=== PATIENT | female | born 1940 | race Caucasian/White ===

== ENCOUNTER → 2019-08-02 12:13 | Outpatient (CLI) | payer MEDICARE, SELFPAY ==
--- NOTE | ~2019-08-02 | MR_ITS ---
EXAMINATION: MR femur RT wo con DATE: 08/02/2019 13:24 INDICATION: Severe right quadriceps muscle pain. TECHNIQUE: Magnetic resonance imaging (MRI) of the right thigh was performed without intravenous cont rast. Sequences included axial, sagittal and coronal T1-weighted FSE and axial, sagittal and coronal fluid sensitive FSE STIR. The contralateral left thigh is included on the coronal images. Patient was asked to return for additional axial fluid sensitive FSE STIR and T2-weighted FS FSE weighted imagin g of the thigh utilizing a surface flexed coil to reduce the field artifact which was complicated int erpretation on the initial images. COMPARISON: None. FINDINGS: Metallic magnetic field artifact at the right knee consistent with a prior total knee arthroplasty. T here appears be an associated guide tract extending short distance cephalad from the intercondylar re gion of the distal femur. Marrow signal is otherwise normal throughout the visualized portions of the bilateral femurs and pelvis. No fracture or pathologic marrow replacing process. There appears to be very subtle heterogeneous increased fluid signal associated with several of the m uscles in the bilateral thighs. Specificity on the initial imaging is somewhat limited by some hetero geneity to the MR signal likely related to patient body habitus. Nonetheless the signal changes appea r to respect the anatomic boundaries of the musculature to greater degree than would be expected for artifact. This can be best appreciated when comparing the signal in the right vastus lateralis muscul ature with the adjacent musculature of the vastus intermedius and rectus femoris muscles on both the coronal and axial images. There also appears to be subtle increased signal in the right biceps femori s muscle again relative to the adjacent posterolateral portion of the vastus intermedius muscle and a long the sartorius muscle relative to the surrounding muscles. Similar relative increased signal of t he left vastus lateralis relative to the rectus femoris and vastus intermedius muscle on the coronal images however evaluation is limited in the absence of additional orthogonal planes of imaging. On th e repeat images identical pattern of severe subtle increased signal is appreciated which argues again st field artifact. Relatively symmetric mild lateral predominant subcutaneous edema at both thighs. No loculated fluid c ollections or abnormal masses identified. Small right knee joint effusion. No hip joint effusions. Ne urovascular structures in the right thigh appear unremarkable. No pathologically enlarged inguinal ly mphadenopathy. IMPRESSION: 1. Subtle increased fluid signal on STIR and T2 fat sat images associated with some of the musculatur e in both thighs, including the bilateral vastus intermedius lateralis muscles and right biceps femor is sartorius muscles. Identical pattern with both the body coil as well as imaging with a surface coi l performed 2 days later which would argue against field inhomogeneity artifact. Differential would i nclude overuse syndrome delayed onset muscle soreness, trauma either direct injury or muscle strain, denervation change, rhabdomyolysis and infectious or inflammatory myopathy, the latter which has an a dditional wide differential including dermatomyositis, polymyositis and myositis associated with conn ective tissue diseases. Reviewed, dictated and finalized at location A. STAMPER IMPRESSION: 1. Subtle increased fluid signal on STIR and T2 fat sat images associated with some of the musculature in both thighs, including the bilateral vastus intermed ius lateralis muscles and right biceps femoris sartorius muscles. Identical pat tern with both the body coil as well as imaging with a surface coil performed 2 d
== END ==
PROVIDERS: PCP Family Medicine; Visit Provider Orthopaedic Surgery
DX: M79.651 Pain in right thigh (principal)
CPT/HCPCS: 73718

== ENCOUNTER → 2019-12-29 12:56 | Outpatient (CLI) | payer MEDICARE, SELFPAY ==
--- NOTE | ~2019-12-29 | MM_ITS ---
EXAMINATION: MM screening reed LT w leia HISTORY: Screening TECHNIQUE: Craniocaudal and mediolateral oblique 3-D tomosynthesis images were obtained and synthetic 2-D images were generated. CAD analysis was submitted and interpreted. COMPARISON: Comparison to multiple prior studies sequentially, with oldest reviewed study dated 11/2016. BREAST PARENCHYMAL COMPOSITION: There are scattered areas of fibroglandular density. FINDINGS: There is no evidence of suspicious mass, calcification, or architectural distortion to sugg est malignancy in either breast. There has been no suspicious interval change. IMPRESSION: 1. No mammographic evidence of malignancy. 2. Recommend routine screening mammography in one year. BI-RADS Category 1: Negative Reviewed, dictated and finalized at location A.
== END ==
PROVIDERS: PCP Family Medicine; Visit Provider Internal Medicine Medical Oncology
DX: Z12.31 Encounter for screening mammogram for malignant neoplasm of breast (principal)
CPT/HCPCS: 77063; 77067

== ENCOUNTER 2020-01-18 00:40 | Outpatient (CLI) | payer MEDICARE, SELFPAY ==
[2020-01-18 18:42] LABS: SARS-CoV-2 RNA PCR Negative
== END 2020-01-18 00:41 | disposition home or self-care (01) ==
LOC: ANHCOVIDDT 00:41
PROVIDERS: PCP Family Medicine; Visit Provider Internal Medicine Gastroenterology
DX: Z01.812 Encounter for preprocedural laboratory examination (principal); Z20.828 Contact with and (suspected) exposure to other viral communicable diseases
CPT/HCPCS: 87635; C9803; U0003

== ENCOUNTER 2020-01-20 01:30 | Day surgery (SDC) | payer MEDICARE, SELFPAY ==
[2020-01-13 12:07] VITALS: BMI 43.1
[2020-01-20] MEDS: LACTATED RINGERS 1,000 ML 150 ML IV CONT (08:30)
--- NOTE | 2020-01-20 08:32 | WPDANESEPPF ---
Anes - Initial Pre Proc Eval Procedure: Operation Date: 01/20/20 09:00 Proposed Procedures p Colonoscopy - Mook Wilcox MD Date/Time: 01/20/20 08:32 Surgeon: Mook Wilcox MD Pre Op Diagnosis: IBS with diarrhea Patient Data Age: 79 Gender: F Height: 5 ft 2 in Weight: 107 kg Allergies Allergy/AdvReac Type Severity Reaction Status Date / Time guaifenesin Allergy Unknown FACIAL Verified 01/20/20 08:32 SWELLING tramadol AdvReac Severe URINARY Verified 01/20/20 08:32 FREQ codeine AdvReac Unknown FELT Verified 01/20/20 08:32 WEIRD - GI UPSET NSAIDS AdvReac Severe DECREASED Uncoded 01/20/20 08:32 KIDNEY FUNCTION STEROIDS AdvReac Severe BIPOLAR Uncoded 01/20/20 08:32 OXYCODONE HCL AdvReac Unknown FELT Uncoded 01/20/20 08:32 WEIRD - GI UPSET TRAMADOL HCL AdvReac Unknown FELT Uncoded 01/20/20 08:32 WEIRD - GI UPSET Home Medications Medication Instructions Recorded Confirmed Type aripiprazole 15 mg tablet 15 mg PO DAILY 05/02/19 01/13/20 History bupropion HCl 300 mg 24 hr tablet, 300 mg PO QAM 05/02/19 01/13/20 History extended release tamoxifen 20 mg tablet 50 mg PO DAILY tablet 05/02/19 01/13/20 History meclizine 25 mg tablet 25 mg PO TID PRN #30 tablet 06/10/19 01/13/20 Rx lisinopril 5 mg tablet 5 mg PO BID #180 tablet 07/04/19 01/13/20 Rx levothyroxine 75 mcg capsule 75 mcg PO DAILY #90 cap 09/27/19 01/13/20 Rx temazepam 30 mg capsule 30 mg PO .HS #30 cap 10/19/19 01/13/20 Rx pregabalin 150 mg capsule 150 mg PO BID #180 cap 11/07/19 01/13/20 Rx fluticasone propionate 50 1 spray NASAL DAILY #9.9 ml 12/08/19 01/13/20 Rx mcg/actuation nasal spray,suspension vortioxetine 10 mg tablet 10 mg PO DAILY #90 tablet 12/29/19 01/13/20 Rx amlodipine 10 mg tablet 10 mg PO DAILY #90 tablet 01/06/20 01/13/20 Rx peg 3350-electrolytes 236 240 ml PO Q10M #4000 ml 01/11/20 Rx gram-22.74 gram-6.74 gram-5.86 gram solution Patient hx anesthesia problems: none Family hx anesthesia problems: none [facility] Past Medical History Medical History (Updated 12/15/19 @ 11:21 by Mook Wilcox MD) Acute depression Adenomatous colon polyp Arthritis Breast cancer Fibromyalgia Fibromyalgia History of endometrial cancer History of stroke History of vaginal delivery x 3 Hypertension Irritable bowel syndrome with diarrhea Irritable bowel syndrome without diarrhea Myositis Obese Surgical History Surgical History (Updated 10/26/19 @ 10:19 by Nicole Norris CMA) History of back surgery X3 History of cholecystectomy History of fusion of cervical spine History of hysterectomy History of knee surgery Left History of shoulder surgery Left History of tubal ligation Social History Social History (Updated 12/15/19 @ 11:11 by Hiral Giron) Years smoked: 1 Smoking status: Former smoker Tobacco type: cigarettes Second hand tobacco smoke exposure: No Alcohol intake: never Anes - Eval Final PreProcedure Day of Procedure 01/20/20 08:32 Patient weight: morbidly obese Heart: regular rate and rhythm Lungs: clear to auscultation Airway: Mallampati scale class III Neurological: alert and oriented Last oral intake: >/= 8 hours ASA classification: III Emergent: no Anesthesia type and monitoring: general and standard monitoring Informed Consent: The patient's anesthetic plan and its attendant risks and benefits were discussed with the patient/family/POA. Questions were solicited and answers provided to the satisfaction of the patient/family/POA.
[2020-01-20 08:34] VITALS: BP 144/66; PULSE 91; RESP 20; TEMP 36.6; O2SAT 97
--- NOTE | 2020-01-20 09:27 | PM.HPGS ---
History of Present Illness History of Present Illness Consent: Risks, benefits, and alternatives have been discussed and questions answered. Patient agrees to proceed with procedure. Chief complaint: IBS with diarrhea Narrative: Oliva Andrews is a 79 year old female with last colonoscopy about 5 years ago with polyps, also IBS-D but well controlled. Review of Systems Constitutional: Constitutional: Denies headache(s) and Denies weakness Eyes: Eyes: Denies blurry vision ENT: Reports Normal hearing present, Denies headache(s) and Denies neck pain Cardiovascular: Cardiovascular: Denies chest pain and Denies dyspnea Respiratory: Respiratory: Denies dyspnea Gastrointestinal: Gastrointestinal: Reports no additional gastrointestinal complaints Genitourinary: Genitourinary: Denies dysuria Musculoskeletal: Musculoskeletal: Denies neck pain Integumentary/Breasts: Skin/Breast: Denies dry skin Neurologic: Reports Normal hearing present, Denies headache(s) and Denies weakness Psychiatric: Psychiatric: Denies anxiety Endocrine: Endocrine: Denies change in body appearance Hematologic/Lymphatic: Hematologic/Lymphatic: Denies easy bleeding Allergic/Immunologic: Allergic/Immunologic: Denies urticaria PMFSH Past Medical History Medical History (Updated 12/15/19 @ 11:21 by Mook Wilcox MD) Acute depression Adenomatous colon polyp Arthritis Breast cancer Fibromyalgia Fibromyalgia History of endometrial cancer History of stroke History of vaginal delivery x 3 Hypertension Irritable bowel syndrome with diarrhea Irritable bowel syndrome without diarrhea Myositis Obese Surgical History Surgical History (Updated 10/26/19 @ 10:19 by Nicole Norris CMA) History of back surgery X3 History of cholecystectomy History of fusion of cervical spine History of hysterectomy History of knee surgery Left History of shoulder surgery Left History of tubal ligation Social History Social History (Updated 12/15/19 @ 11:11 by Hiral Giron) Years smoked: 1 Smoking status: Former smoker Tobacco type: cigarettes Second hand tobacco smoke exposure: No Alcohol intake: never Meds Home Medications and Allergies Home Medications Medication Instructions Recorded Confirmed Type aripiprazole 15 mg tablet 15 mg PO DAILY 05/02/19 01/20/20 History bupropion HCl 300 mg 24 hr tablet, 300 mg PO QAM 05/02/19 01/20/20 History extended release tamoxifen 20 mg tablet 50 mg PO DAILY tablet 05/02/19 01/13/20 History meclizine 25 mg tablet 25 mg PO TID PRN #30 tablet 06/10/19 01/13/20 Rx lisinopril 5 mg tablet 5 mg PO BID #180 tablet 07/04/19 01/20/20 Rx levothyroxine 75 mcg capsule 75 mcg PO DAILY #90 cap 09/27/19 01/13/20 Rx temazepam 30 mg capsule 30 mg PO .HS #30 cap 10/19/19 01/20/20 Rx pregabalin 150 mg capsule 150 mg PO BID #180 cap 11/07/19 01/20/20 Rx fluticasone propionate 50 1 spray NASAL DAILY #9.9 ml 12/08/19 01/13/20 Rx mcg/actuation nasal spray,suspension vortioxetine 10 mg tablet 10 mg PO DAILY #90 tablet 12/29/19 01/13/20 Rx amlodipine 10 mg tablet 10 mg PO DAILY #90 tablet 01/06/20 01/20/20 Rx Allergies Allergy/AdvReac Type Severity Reaction Status Date / Time guaifenesin Allergy Unknown FACIAL Verified 01/20/20 08:32 SWELLING tramadol AdvReac Severe URINARY Verified 01/20/20 08:32 FREQ codeine AdvReac Unknown FELT Verified 01/20/20 08:32 WEIRD - GI UPSET NSAIDS AdvReac Severe DECREASED Uncoded 01/20/20 08:32 KIDNEY FUNCTION STEROIDS AdvReac Severe BIPOLAR Uncoded 01/20/20 08:32 OXYCODONE HCL AdvReac Unknown FELT Uncoded 01/20/20 08:32 WEIRD - GI UPSET TRAMADOL HCL AdvReac Unknown FELT Uncoded 01/20/20 08:32 WEIRD - GI UPSET Vital Signs Vital Signs - 24 hr 01/20/20 08:34 Temperature 97.8 F Pulse Rate 91 Respiratory Rate 20 Blood Pressure 144/66 H Pulse Oximetry 97 Exam Const: General:
[2020-01-20 09:50] VITALS: BP 104/49; PULSE 72; RESP 23; O2SAT 95
[2020-01-20 10:00] VITALS: BP 116/56; PULSE 73; RESP 17; O2SAT 100
[2020-01-20 10:10] VITALS: BP 118/60; PULSE 72; RESP 17; O2SAT 97
== END 2020-01-20 10:33 | disposition home or self-care (01) ==
PROVIDERS: PCP Family Medicine; Visit Provider Internal Medicine Gastroenterology
PROC: 0DJD8ZZ Inspection of Lower Intestinal Tract, Via Natural or Artificial Opening Endoscopic (ICD-10-PCS; CPT 45378; principal; 2020-01-20 09:00)
DX: Z12.11 Encounter for screening for malignant neoplasm of colon (principal); Z86.010 Personal history of colon polyps; K58.0 Irritable bowel syndrome with diarrhea; K57.30 Diverticulosis of large intestine without perforation or abscess without bleeding; K64.8 Other hemorrhoids; I10 Essential (primary) hypertension; E66.01 Morbid (severe) obesity due to excess calories; Z68.41 Body mass index [BMI] 40.0-44.9, adult; G47.33 Obstructive sleep apnea (adult) (pediatric); E03.9 Hypothyroidism, unspecified; F32.9 Major depressive disorder, single episode, unspecified; M79.7 Fibromyalgia; C50.919 Malignant neoplasm of unspecified site of unspecified female breast; Z79.810 Long term (current) use of selective estrogen receptor modulators (SERMs); Z85.41 Personal history of malignant neoplasm of cervix uteri; Z90.710 Acquired absence of both cervix and uterus; Z86.73 Personal history of transient ischemic attack (TIA), and cerebral infarction without residual deficits; Z87.891 Personal history of nicotine dependence; Z79.51 Long term (current) use of inhaled steroids; Z79.899 Other long term (current) drug therapy
CPT/HCPCS: 45380; 88305; J2704; J7120

== ENCOUNTER → 2020-10-01 13:11 | Outpatient (CLI) | payer MEDICARE, SELFPAY ==
--- NOTE | ~2020-10-01 | XR_ITS ---
EXAMINATION: XR abdomen/kub 1V DATE: 10/01/2020 13:29 INDICATION: Abdominal pain TECHNIQUE: A supine view of the abdomen on 2 radiographs was obtained. COMPARISON: 08/11/2018 FINDINGS: Moderate amount of stool scattered throughout the colon. No dilated gas-filled loops of bowel to sugg est obstruction. Cholecystectomy clip in the right upper quadrant. Multiple phleboliths in the pelvis . 2-3 mm calcification projecting over the lower pole of the left kidney suspicious for renal stone. Severe lumbosacral spondylosis. IMPRESSION: 1. Moderate amount of colonic stool. Correlate clinically for constipation. 2. 2-3 mm likely renal stone at the lower pole of the left kidney. Reviewed, dictated and finalized at location A.
--- NOTE | ~2020-10-01 | US_ITS ---
US renal BI 10/01/2020 13:47 Procedure: Realtime transabdominal ultrasound of the kidneys and bladder. Indication: Renal cyst Comparison: Ultrasound dated 02/02/2018 Findings: Renal echotexture is normal bilaterally without hydronephrosis, contour deforming mass or r enal calculus. The right kidney measures 10.3 cm and left kidney measures 12.1 cm. No significant judy nge to 9 mm hypoechoic right renal mass, likely benign cysts. Bladder within normal limits. Impression: 1: No significant change to 9 mm hypoechoic right renal mass, likely benign cyst. Reviewed, dictated and finalized at location B. Impression: 1: No significant change to 9 mm hypoechoic right renal mass, likely benign cys t.
== END ==
PROVIDERS: PCP Family Medicine; Visit Provider Physician Assistant Medical
DX: G89.29 Other chronic pain (principal); R10.9 Unspecified abdominal pain; N28.1 Cyst of kidney, acquired
CPT/HCPCS: 74018; 76775

== ENCOUNTER → 2020-12-11 10:05 | Outpatient (REF) | payer MEDICARE, SELFPAY | LOC: ANHLAB 10:05 | PROVIDERS: PCP Family Medicine; Visit Provider Nurse Practitioner | DX: L82.1 Other seborrheic keratosis (principal) | CPT/HCPCS: 88305 ==

== ENCOUNTER → 2020-12-31 10:37 | Outpatient (CLI) | payer MEDICARE, SELFPAY ==
--- NOTE | ~2020-12-31 | MM_ITS ---
EXAMINATION: MM screening reed LT w leia HISTORY: Screening mammogram TECHNIQUE: Craniocaudal and mediolateral oblique 3-D tomosynthesis images were obtained and synthetic 2-D images were generated. CAD analysis was submitted and interpreted. COMPARISON: 12/26/2019, 12/24/2018, 12/14/2017 left digital screening mammogram examinations BREAST PARENCHYMAL COMPOSITION: There are scattered areas of fibroglandular density. FINDINGS: There is no evidence of suspicious mass, calcification, or architectural distortion to sugg est malignancy in either breast. There has been no suspicious interval change. IMPRESSION: 1. No mammographic evidence of malignancy. 2. Recommend routine screening mammography in one year. BI-RADS Category 1: Negative Reviewed, dictated and finalized at location A.
== END ==
PROVIDERS: PCP Family Medicine; Visit Provider Internal Medicine Medical Oncology
DX: Z12.31 Encounter for screening mammogram for malignant neoplasm of breast (principal)
CPT/HCPCS: 77063; 77067

== ENCOUNTER 2021-04-15 11:45 | Outpatient (CLI) | payer MEDICARE, SELFPAY ==
--- NOTE | ~2021-04-15 | NM_ITS ---
EXAMINATION: NM bone 3 phase DATE: 04/15/2021 15:08 INDICATION: Left shoulder pain. TECHNIQUE: 24.5 mCi Tc-99m HDP was administered intravenously. Scintigrams of the chest were obtained in angiographic, blood pool, and delayed phases. COMPARISON: Left shoulder CT 04/15/2021, bone scan 05/22/2008, chest CT 07/02/2017 FINDINGS: There is a total left shoulder arthroplasty. There is increased activity in left glenoid. T here is increased activity at the acromioclavicular joints and right glenohumeral joint correlating w ith osteoarthritis by CT. There is increased activity at the sternoclavicular joints on delayed phase images, right worse than left, correlating with osteoarthritis by CT. IMPRESSION: 1. Total left shoulder arthroplasty with increased activity in left glenoid without abnormal CT brit elate. Note that this finding has poor specificity, and may be normal. Reviewed, dictated and finalized at location A. PROGRAMMER IMPRESSION: 1. Total left shoulder arthroplasty with increased activity in left glenoid wi thout abnormal CT correlate. Note that this finding has poor specificity, and m ay be normal.
--- NOTE | ~2021-04-15 | CT_ITS ---
EXAMINATION: CT shoulder LT wo con DATE: 04/15/2021 12:31 INDICATION: Left shoulder pain. TECHNIQUE: Computed tomography (CT) of the left shoulder was performed without intravenous contrast. Automated exposure control and iterative reconstruction technique were employed. The dose-length prod uct was 453.65 mGy-cm. COMPARISON: Chest CT 10/29/2015 FINDINGS: There is a reverse [id number]-[id number] total left shoulder arthroplasty in near-anatomic alignm ent. No periprosthetic lucency to suggest loosening or infection. No fracture. There is an exostosis of glenoid neck posteroinferiorly. There is heterotopic ossification posterior to the glenohumeral amy int. There is heterotopic opacification anteromedial to the humeral component. There is moderate oste oarthritis of acromioclavicular joint. Main pulmonary artery is enlarged, consistent with pulmonary a rterial hypertension. There are coronary artery calcifications. IMPRESSION: 1. Reverse yzoi-trt-[id number] total left shoulder arthroplasty in near-anatomic alignment. 2. Moderate acromioclavicular joint osteoarthritis. Reviewed, dictated and finalized at location A. F PSYCHOLOGIST IMPRESSION: 1. Reverse iemn-jve-xaszwg total left shoulder arthroplasty in near-anatomic al ignment. 2. Moderate acromioclavicular joint osteoarthritis.
== END 2021-04-15 11:46 | disposition home or self-care (01) ==
LOC: ANHIMG 11:46
PROVIDERS: PCP Family Medicine; Visit Provider Orthopaedic Surgery Hand Surgery
DX: M19.012 Primary osteoarthritis, left shoulder (principal)
CPT/HCPCS: 73200; 78315; A9561

== ENCOUNTER 2021-08-06 13:51 | Outpatient (CLI) | payer MEDICARE, SELFPAY | END 2021-08-06 13:52 | disposition home or self-care (01) | LOC: ANHAUDIO 13:52 | PROVIDERS: PCP Family Medicine; Visit Provider Otolaryngology | DX: H83.3X1 Noise effects on right inner ear (principal) | CPT/HCPCS: 92557; 92567 ==

== ENCOUNTER 2021-11-07 14:00 | Outpatient (RCR) | payer MEDICARE, SELFPAY | END 2021-11-07 23:59 | disposition home or self-care (01) | LOC: ANHAUDIO 14:00 | PROVIDERS: PCP Family Medicine; Visit Provider Family Medicine | DX: Z46.1 Encounter for fitting and adjustment of hearing aid (principal) | CPT/HCPCS: 99199; V5261 ==

== ENCOUNTER 2022-02-17 13:30 | Outpatient (RCR) | payer MEDICARE, SELFPAY | END 2022-02-17 23:59 | disposition home or self-care (01) | LOC: ANHAUDIO 13:30 | PROVIDERS: PCP Family Medicine; Referring Provider Family Medicine; Visit Provider Otolaryngology | DX: Z46.1 Encounter for fitting and adjustment of hearing aid (principal) | CPT/HCPCS: 99199 ==

== ENCOUNTER 2022-03-06 11:34 | Outpatient (CLI) | payer MEDICARE, SELFPAY ==
--- NOTE | ~2022-03-06 | CT_ITS ---
EXAMINATION: CT abdomen pelvis w con INDICATION: Right lower quadrant pain, history of breast cancer TECHNIQUE: Computed tomographic images of the abdomen and pelvis were obtained after the administrati on of 100 cc of Omnipaque 350 intravenous contrast. The dose-length product (DLP) was 1500.45 mGy-cm. Automated exposure control and iterative reconstruction technique were employed. COMPARISON: 07/19/2018 FINDINGS: Minimal dependent atelectasis is present in the lung bases. The heart size is normal. The g allbladder is surgically absent. There is mild enlargement of the common bile duct and central intrah epatic ducts which is likely due to post cholecystectomy state. The liver, spleen, pancreas, and adre nal glands are normal. There is a 3 mm nonobstructing stone of the left kidney. There is a 13 mm cyst of the left kidney. The right kidney is unremarkable. There is calcified atherosclerosis of the aort a and many of the other arteries. Colonic diverticulosis is present without evidence of diverticuliti s. No pathologically enlarged abdominal or pelvic lymph nodes are identified. There is no free intrap eritoneal gas or evidence of bowel obstruction. The appendix is normal. There is a right periumbilica l ventral hernia containing fat. There is severe lumbar spondylosis. IMPRESSION: 1. Right periumbilical ventral hernia containing fat. 2. Nonobstructing left nephrolithiasis. Reviewed, dictated and finalized at location A.
[2022-03-06 12:09] LABS: Basophils Percent Auto 0.6 % (0.2-1.2); Eosinophils Percent Auto 0.4 % (0-4.4); Hematocrit 48.9 % (37.0-47.0); Immature Granulocyte Absolute 0.01 K/mm3 (0.00-0.031); Immature Granulocyte Percent A 0.2 % (0-0.5); Lymphocytes Absolute Auto 0.59 K/mm3 (0.9-3.2); Mean Corpuscular HGB Conc 32.7 g/dl (32-36); Mean Corpuscular Hemoglobin 31.7 pg (26-34); Mean Platelet Volume 9.6 fl (7.4-10.4); Monocytes Absolute Auto 0.4 K/mm3 (0.1-0.6); Neutrophils Absolute Auto 4.3 K/mm3 (1.3-6.7); Neutrophils Percent Auto 79.8 % (45.5-73.1); Platelet Count Result 233 k/mm3 (150-375); Red Blood Count 5.04 M/mm3 (4.2-5.4); Red Cell Distribution Width 13.2 % (11.5-14.5); White Blood Count 5.4 K/mm3 (4.5-10.0)
[2022-03-06 12:25] LABS: Alanine Aminotransferase 36 U/L (6-35); Albumin Level 4.2 g/dL (3.5-5.1); Alkaline Phosphatase 77 U/L (38-126); Amylase 108 U/L (30-110); Anion Gap 9 mmol/L (8-16); Aspartate Amino Transferase 47 U/L (14-36); Bilirubin,Total 0.6 mg/dL (0.2-1.3); Blood Urea Nitrogen 15 mg/dL (7-17); Calcium 9.6 mg/dL (8.4-10.2); Carbon Dioxide 23 mmol/L (22-30); Chloride 106 mmol/L (98-107); Estimated Glomerular Filt Rate 60; Glucose 93 mg/dL (65-110); Lipase 90 U/L (23-300); Potassium 4.4 mmol/L (3.4-5.0); Sodium 138 mmol/L (137-145)
[2022-03-06 12:35] LABS: Estimated Glomerular Filt Rate 60
== END 2022-03-06 11:35 | disposition home or self-care (01) ==
LOC: ANHIMG 11:35
PROVIDERS: PCP Family Medicine; Visit Provider Nurse Practitioner Family
DX: R10.31 Right lower quadrant pain (principal); Z87.19 Personal history of other diseases of the digestive system; N20.0 Calculus of kidney; K43.9 Ventral hernia without obstruction or gangrene
CPT/HCPCS: 36415; 74177; 80053; 82150; 83690; 85025; Q9967

== ENCOUNTER → 2022-03-25 13:43 | Outpatient (CLI) | payer MEDICARE, SELFPAY ==
--- NOTE | ~2022-03-25 | MM_ITS ---
EXAMINATION: MM screening reed LT w leia HISTORY: Screening TECHNIQUE: Craniocaudal and mediolateral oblique 3-D tomosynthesis images were obtained and synthetic 2-D images were generated. CAD analysis was submitted and interpreted. COMPARISON: 12/14/2017 BREAST PARENCHYMAL COMPOSITION: Breast composed of scattered areas of fibroglandular density FINDINGS: There is no evidence of suspicious mass, calcification, or architectural distortion to sugg est malignancy in the left breast. There has been no suspicious interval change. IMPRESSION: 1. No mammographic evidence of malignancy. 2. Recommend routine screening mammography in one year. BI-RADS Category 1: Negative Reviewed, dictated and finalized at location A.
== END ==
PROVIDERS: PCP Family Medicine; Visit Provider Internal Medicine Medical Oncology
DX: Z12.31 Encounter for screening mammogram for malignant neoplasm of breast (principal)
CPT/HCPCS: 77063; 77067

== ENCOUNTER → 2022-07-17 13:44 | Outpatient (CLI) | payer MEDICARE, SELFPAY ==
--- NOTE | ~2022-07-17 | US_ITS ---
US axilla RT DATE: 07/17/2022 14:02 INDICATION: Right axillary and shoulder pain for one month. Diminished range of motion, pain and stif fness of right upper extremity History of right mastectomy. TECHNIQUE: Real-time imaging of the right axillary soft tissues COMPARISON: None FINDINGS: No suspicious mass or shadowing, cyst or other significant sonographic abnormality of the r ight axilla is noted. IMPRESSION: Negative examination Reviewed, dictated and finalized at Location A. Reviewed, dictated and finalized at location A. PREVENTION CONSULTANT IMPRESSION: Negative examination
== END ==
PROVIDERS: PCP Family Medicine; Visit Provider Nurse Practitioner Family
DX: M25.511 Pain in right shoulder (principal); Z85.3 Personal history of malignant neoplasm of breast
CPT/HCPCS: 76882

== ENCOUNTER → 2023-03-27 10:24 | Outpatient (CLI) | payer MEDICARE, SELFPAY ==
--- NOTE | ~2023-03-27 | MM_ITS ---
EXAMINATION: MM screening rede LT w leia HISTORY: Screening TECHNIQUE: Craniocaudal and mediolateral oblique 3-D tomosynthesis images were obtained and synthetic 2-D images were generated. CAD analysis was submitted and interpreted. COMPARISON: Comparison to multiple prior studies sequentially, with oldest reviewed study dated 11/2016. BREAST PARENCHYMAL COMPOSITION: Breast composed of scattered areas of fibroglandular density FINDINGS: There is no evidence of suspicious mass, calcification, or architectural distortion to sugg est malignancy in either breast. There has been no suspicious interval change. IMPRESSION: 1. No mammographic evidence of malignancy. 2. Recommend routine screening mammography in one year. BI-RADS Category 1: Negative Reviewed, dictated and finalized at location A.
== END ==
PROVIDERS: PCP Family Medicine; Visit Provider Internal Medicine Medical Oncology
DX: Z12.31 Encounter for screening mammogram for malignant neoplasm of breast (principal)
CPT/HCPCS: 77063; 77067

== ENCOUNTER → 2023-06-11 13:11 | Outpatient (CLI) | payer MEDICARE, SELFPAY ==
--- NOTE | ~2023-06-11 | CT_ITS ---
Non-contrast CT scan of the Abdomen and Pelvis Clinical indication: Abdominal pain Technique: 2.5 mm axial scans were obtained through the abdomen and pelvis without intravenous or or al contrast. Dose reduction technique was used on this scan by utilizing automated exposure control a nd iterative reconstruction technique. The dose-length product (DLP) was 952.94 mGy-cm. COMPARISON: 03/06/2022 Findings: Images through the lung bases reveal no abnormalities. 5 mm nonobstructing left renal stone present. No other renal or ureter stones seen. No hydronephrosis . Cholecystectomy clips are present. The liver, spleen, pancreas, and adrenals appear normal. There are atherosclerotic calcifications of the aorta. There is no evidence of bowel obstruction. Small fat-containing ventral hernia noted. Images through the pelvis were performed. There is no evidence of ascites or lymphadenopathy. Bladder unremarkable. No adnexal mass seen. Impression: 5 mm nonobstructing left renal stone. Small fat-containing ventral hernia. Reviewed, dictated and finalized at [facility]. CTOR DANCE Impression: 5 mm nonobstructing left renal stone. Small fat-containing ventral hernia.
== END ==
PROVIDERS: PCP Family Medicine; Visit Provider Family Medicine
DX: R10.9 Unspecified abdominal pain (principal); N20.0 Calculus of kidney; K43.9 Ventral hernia without obstruction or gangrene
CPT/HCPCS: 74176

== ENCOUNTER 2023-07-06 14:05 | Outpatient (CLI) | payer MEDICARE, SELFPAY ==
--- NOTE | ~2023-07-06 | XR_ITS ---
EXAM: XR abdomen/kub 1V DATE: 07/06/2023 14:29 HISTORY: kIDNEY STONES . COMPARISON: 10/01/2020; CT abdomen pelvis 06/11/2023. FINDINGS: Senescent changes in the lungs. Cholecystectomy clip. Normal bowel gas pattern. No organom egaly. 5 mm left lower pole calcification. Multiple pelvic phleboliths. Degenerative changes in the s pine, bilateral hips, and pubic symphysis. IMPRESSION: Left nephrolithiasis. Reviewed, dictated and finalized at location K. ES' HAT TRIMMER IMPRESSION: Left nephrolithiasis.
== END 2023-07-06 14:06 ==
PROVIDERS: PCP Nurse Practitioner Family; Visit Provider Nurse Practitioner Family
DX: N20.0 Calculus of kidney (principal)
CPT/HCPCS: 74018

== ENCOUNTER 2023-09-07 14:31 | Outpatient (CLI) | payer MEDICARE, SELFPAY ==
--- NOTE | 2023-09-07 14:44 | ECG_ITS ---
Measurements Intervals [place] Rate: 68 P: 78 GA: 150 QRS: 20 QRSD: 90 T: 42 QT: 368 QTc: 392 Interpretive Statements SINUS RHYTHM LOW QRS VOLTAGE IN PRECORDIAL LEADS [QRS DEFLECTION < 1.0 mV IN CHEST LEADS] NO PREVIOUS ECG AVAILABLE FOR COMPARISON Electronically Signed On 09-08-2023 8:44:41 CDT by Jonathan Montano M.D.
[2023-09-07 15:52] LABS: Anion Gap 6 mmol/L (4-12); Blood Urea Nitrogen 21 mg/dL (7-17); Calcium 10.1 mg/dL (8.4-10.2); Carbon Dioxide 28 mmol/L (22-30); Chloride 106 mmol/L (98-107); Estimated Glomerular Filt Rate 60; Glucose 110 mg/dL (65-110); Potassium 4.1 mmol/L (3.4-5.0); Sodium 140 mmol/L (137-145)
== END 2023-09-07 14:32 | disposition home or self-care (01) ==
LOC: ANHSURGERY 14:40
PROVIDERS: Anesthesiology; PCP Family Medicine; Visit Provider Urology
DX: N20.0 Calculus of kidney (principal); I12.9 Hypertensive chronic kidney disease with stage 1 through stage 4 chronic kidney disease, or unspecified chronic kidney disease; N18.30 Chronic kidney disease, stage 3 unspecified; Z01.818 Encounter for other preprocedural examination
CPT/HCPCS: 36415; 80048; 85610; 85730; 87086; 87088; 93005

== ENCOUNTER 2023-09-11 02:02 | Day surgery (SDC) | payer MEDICARE, SELFPAY ==
[2023-09-02 13:16] VITALS: BMI 42.9
--- NOTE | 2023-09-02 13:53 | PC.NURSE ---
Report to the Outpatient Waiting Room, entrance under the green pavilion located off [facility], at time ___8:30AM____ on date __09/11/23 . Planned Procedure Time: __10:30AM . Time changes happen often and if your time is changed the preop area will call you the afternoon before. - You and your visitor will be asked to self-screen and do not enter if you have any COVID symptoms. - A mask is optional within the hospital at this time. Patients may have clear liquids (water, carbonated beverages, clear teas, apple juice) until 3 hours prior to surgery with a maximum of 20 ounces. - No food from midnight until time of surgery. Take the following medications with a SIP of water the morning of surgery: __ABILIFY, BUPROPION, LEVOTHYROXINE, PREGABALIN, TRINTELLIX____ DO NOT STOP ANY OF YOUR OTHER PRESCRIPTION MEDICATIONS PRIOR TO SURGERY ?EXCEPT THE FOLLOWING Medications to discontinue per physician ___HOLD ASPIRIN & ALL VITAMINS/SUPPLEMENTS 7 DAYS PRE-OP PER DR BOBO Date to take last dose 09/03/23 Please no make-up, nail omani, hairspray, perfume, deodorant, or body powder the day of surgery. No jewelry (including any body piercings) or valuables the day of surgery, leave them at home. Please take a shower or bath the night before, or the morning of, surgery with an antibacterial soap. Wear comfortable, loose fitting clothing. - Jewelry must be removed prior to entering the operating room. Rings and piercings that are not removed may be cut off. - The hospital will not accept responsibility for valuables. - Please leave all valuables, including medications, at home the day of surgery. If you are going home after surgery, a licensed shuttle bus driver must drive you home. - NO public transportation without another adult if you receive anesthesia. - We recommend that an adult stay with you for 24 hours following discharge. - We also recommend that you do not drive, make important decision, drink alcoholic beverages, or take any drugs that were not prescribed by your health care provider for at least 24 hours after your discharge time. Follow any additional instructions given to you from your surgeon. If you or anyone in your household have experienced Covid symptoms in the past week, please notify your surgeon or the nurse liaison at the phone number below for possible testing. Telephone instructions given to ____PATIENT and asked if any additional questions and then verbalized understanding. Patient advised to call surgeon office or pre surgery nurse liaison [phone] if any additional questions.
--- NOTE | 2023-09-03 07:35 | PM.HPGS ---
History of Present Illness History of Present Illness Consent: Risks, benefits, and alternatives have been discussed and questions answered. Patient agrees to proceed with procedure. Chief complaint: Renal Stones Narrative: Oliva Andrews is a 82 year old female S been evaluated over the past several months by our nurse practitioners for intermittent, somewhat atypical left flank pain. Upper tract imaging has demonstrated a calcified 5 mm renal calculus. After consideration was he has elected for left ESWL. She is aware the risks including, not limited to, adverse cardiopulmonary events, need for additional procedures, hematuria and perinephric hematoma. Review of Systems Review of Systems: All systems reviewed & are unremarkable except as noted in HPI and below PMFSH Past Medical History Medical History Acute depression Adenomatous colon polyp Arthritis BMI 39.0-39.9,adult BMI 40.0-44.9, adult Breast cancer Chronic idiopathic constipation Collagenous colitis Fibromyalgia Fibromyalgia Foot pain, bilateral History of endometrial cancer History of stroke History of vaginal delivery x 3 Hypertension Irritable bowel syndrome with diarrhea Irritable bowel syndrome without diarrhea Left shoulder pain Myositis Nasal drainage Obese Stress due to illness of family member Surgical History Surgical History History of back surgery X3 History of cholecystectomy History of fusion of cervical spine History of hysterectomy History of knee surgery Left History of shoulder surgery Left History of tubal ligation Family History Family History Father Hypertension Cerebrovascular accident, Onset Age: 86 Patient's father is Family history of heart disease in male family member before age 55 Family history of cardiovascular disease Sibling Family history of malignant neoplasm of cervix Patient's sister is Grandparent Cerebrovascular accident Mother Family history of heart disease in male family member before age 55 Family history of cardiovascular disease Sibling No problems noted. Other Family history of kidney stones Social History Social History Years smoked: 1 Smoking status: Never smoker Tobacco type: cigarettes Second hand tobacco smoke exposure: Yes Additional smoking assessment comments: Pt only smoke 1 cigarette a day when she was in college. 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 [employer] Gender identity (if verbalized by the patient): Female Spiritual care concerns: No Meds Home Medications and Allergies Home Medications Medication Instructions Recorded Confirmed Type aripiprazole 15 mg tablet (Abilify) 15 mg PO QAM 05/02/19 09/02/23 History bupropion HCl 300 mg 24 hr tablet, 300 mg PO QAM 05/02/19 09/02/23 History extended release temazepam 30 mg capsule 30 mg PO .HS #30 caps 10/19/19 09/02/23 Rx lisinopril 5 mg tablet 5 mg PO BID #180 tabs 02/04/23 09/02/23 Rx ipratropium bromide 21 mcg (0.03 2 spray intranasal BID #30 mL 05/17/23 09/02/23 Rx %) nasal spray aspirin 81 mg tablet,delayed 81 mg PO DAILY 08/06/23 09/02/23 History release (Adult Aspirin Regimen) amlodi
[2023-09-11] VITALS (9 sets, daily range): BP systolic 103–128; BP diastolic 50–81; PULSE 64–81; RESP 11–18; TEMP 36.2–36.8; O2SAT 95–100
--- NOTE | ~2023-09-11 | XR_ITS ---
EXAMINATION: XR abdomen/kub 1V DATE: 09/11/2023 08:45 INDICATION: Kidney stones. TECHNIQUE: A supine view of the abdomen on 2 radiographs was obtained. COMPARISON: Abdomen radiographs 07/06/2023, CT abdomen and pelvis 06/11/2023 FINDINGS: There are no dilated loops of bowel. There are phleboliths in the pelvis. There is a 4 mm s tone in left kidney. There is a surgical clip in right abdomen. IMPRESSION: 1. 4 mm stone in left kidney. Reviewed, dictated and finalized at location A.
--- NOTE | 2023-09-11 06:09 | WPDHPUPDATE1 ---
History and Physical Update Update Date/Time: 09/11/23 06:09 History and Physical has been reviewed, including an updated exam of the patient. There are NO changes in the patient's condition. Risks, benefits, and alternatives have been discussed and questions answered. Patient agrees to proceed with procedure.
[2023-09-11] MEDS: LACTATED RINGERS 1,000 ML 30 ML IV CONT (09:20)
--- NOTE | 2023-09-11 09:31 | WPDANESEPPF ---
Anes - Initial Pre Proc Eval Procedure: Operation Date: 09/11/23 10:30 Proposed Procedures p Left Extracorporeal Shock Wave Lithotripsy - Sang Carrillo MD Date/Time: 09/11/23 09:31 Surgeon: Sang Carrillo MD Pre Op Diagnosis: Renal Stones Patient Data Age: 82 Gender: F Height: 1.55 m Weight: 103 kg Allergies Allergy/AdvReac Type Severity Reaction Status Date / Time Androgenic Anabolic Steroid Allergy Mild MANIC Verified 09/02/23 13:06 SYMPTOMS guaifenesin Allergy Unknown FACIAL Verified 09/02/23 13:06 SWELLING tramadol AdvReac Severe URINARY Verified 09/02/23 13:06 FREQ NSAIDS (Non-Steroidal AdvReac Mild Other Verified 09/02/23 13:06 Anti-Inflamma oxycodone AdvReac Mild Nausea Verified 09/02/23 13:06 codeine AdvReac Unknown Gastrointestinal Verified 09/02/23 13:06 Upset Home Medications Medication Instructions Recorded Confirmed Type aripiprazole 15 mg tablet (Abilify) 15 mg PO QAM 05/02/19 09/02/23 History bupropion HCl 300 mg 24 hr tablet, 300 mg PO QAM 05/02/19 09/02/23 History extended release temazepam 30 mg capsule 30 mg PO .HS #30 caps 10/19/19 09/02/23 Rx lisinopril 5 mg tablet 5 mg PO BID #180 tabs 02/04/23 09/02/23 Rx ipratropium bromide 21 mcg (0.03 2 spray intranasal BID #30 mL 05/17/23 09/02/23 Rx %) nasal spray aspirin 81 mg tablet,delayed 81 mg PO DAILY 08/06/23 09/02/23 History release (Adult Aspirin Regimen) amlodipine 10 mg tablet 10 mg PO HS 09/02/23 09/02/23 History cholecalciferol (vitamin D3) 50 50 mcg PO DAILY 09/02/23 09/02/23 History mcg (2,000 unit) capsule cod liver oil 1 cap PO DAILY 09/02/23 09/02/23 History levothyroxine 75 mcg tablet 75 mcg PO QAM 09/02/23 09/02/23 History multivitamin 1 tablet PO DAILY 09/02/23 09/02/23 History pregabalin 150 mg capsule 150 mg PO BID 09/02/23 09/02/23 History psyllium husk 0.4 gram capsule 1.2 g PO TID 09/02/23 09/02/23 History (Metamucil) vitamin B complex 1 tablet PO DAILY 09/02/23 09/02/23 History vortioxetine 10 mg tablet 10 mg PO QAM 09/02/23 09/02/23 History (Trintellix) Patient hx anesthesia problems: none Family hx anesthesia problems: none Results Review: All pre-operative results and documents have been reviewed as part of the pre-operative evaluation. [facility] Past Medical History Medical History Acute depression Adenomatous colon polyp Arthritis BMI 39.0-39.9,adult BMI 40.0-44.9, adult Breast cancer Chronic idiopathic constipation Collagenous colitis Fibromyalgia Fibromyalgia Foot pain, bilateral History of endometrial cancer History of stroke History of vaginal delivery x 3 Hypertension Irritable bowel syndrome with diarrhea Irritable bowel syndrome without diarrhea Left shoulder pain Myositis Nasal drainage Obese Stress due to illness of family member Surgical History Surgical History History of back surgery X3 History of cholecystectomy History of fusion of cervical spine History of hysterectomy History of knee surgery Left History of shoulder surgery Left History of tubal ligation Family History Family History Father Hypertension Cerebrovascular accident, Onset Age: 86 Patient's father is Family history of heart disease in male family member before age 55 Family history of cardiovascular disease Sibling Family history of malignant neoplasm of cervix Patient's sister is Grandparent Cerebrovascular accident Mother Family history of heart disease in male family member before age 55 Family history of cardiovascular disease Sibling No problems noted. Other Family history of kidney stones Social History Social History Years smoked: 1 Smoking status: Never smoker Tobacco type: cigarettes Second hand
[2023-09-11] MEDS: ceFAZolin 2 GM/D5W 50 ML 2 GM/50 ML BAG IVPB (10:03)
--- NOTE | 2023-09-11 10:25 | W.PM.PROC2 ---
Procedure Note - Detailed Date of Procedure 09/11/23 Pre-op Diagnosis Left renal stone Post-op Diagnosis Same Procedure Performed Left ESWL Surgeon Sang Carrillo MD Anesthesia General Description of Procedure The patient was brought to the operative suite where she was placed in the supine position on the Dornier lithotripsy table. The focal point of the lithotripter was placed at a 4-5mm left renal calculus. A total of 2500 shocks were delivered at a power setting of 4. There appeared to be good fragmentation of the stone. The patient tolerated the procedure well and was taken to the recovery room in good condition. Drains No Packing No Complications No immediate complications Condition Stable
== END 2023-09-11 12:50 | disposition home or self-care (01) ==
PROVIDERS: PCP Family Medicine; Visit Provider Urology
PROC: (CPT 50590; principal; 2023-09-11 10:30)
DX: N20.0 Calculus of kidney (principal); I10 Essential (primary) hypertension; F32.A Depression, unspecified; M79.7 Fibromyalgia; Z86.73 Personal history of transient ischemic attack (TIA), and cerebral infarction without residual deficits; E66.01 Morbid (severe) obesity due to excess calories; Z68.41 Body mass index [BMI] 40.0-44.9, adult; Z85.3 Personal history of malignant neoplasm of breast; Z98.1 Arthrodesis status; Z79.82 Long term (current) use of aspirin
CPT/HCPCS: 50590; 36415; 74018; 80048; 85610; 85730; 87086; 87088; 93005; J0690; J2405; J2704; J7120

== ENCOUNTER 2023-09-24 09:54 | Outpatient (CLI) | payer MEDICARE, SELFPAY ==
--- NOTE | ~2023-09-24 | XR_ITS ---
Supine and upright views of the abdomen Clinical history: Renal stone COMPARISON: 09/11/2023 Findings: Bowel gas pattern is nonspecific. No evidence for obstruction or free air. No abnormal mass lesion or calcification is seen, aside from presumed calcified pelvic phleboliths. Osseous structure s are intact. Impression: No significant abnormality is seen. Reviewed, dictated and finalized at [facility]. Impression: No significant abnormality is seen.
== END 2023-09-24 09:55 | disposition home or self-care (01) ==
LOC: ANHIMG 09:55
PROVIDERS: PCP Family Medicine; Visit Provider Physician Assistant
DX: N20.0 Calculus of kidney (principal)
CPT/HCPCS: 74018

== ENCOUNTER 2023-11-19 15:25 | Emergency (ER) | payer MEDICARE, SELFPAY ==
--- NOTE | ~2023-11-19 | CT_ITS ---
CT abdomen pelvis w con Ordering provider: Marah Hernandez PA-C History: . pain in upper abd, mid abd . Comparison: June 11, 2023 Technique: CT abdomen with IV and without oral contrast. Radiation reduction technique utilized. Findings: VISUALIZED LOWER CHEST: Dependent atelectatic changes. UPPER ABDOMINAL ORGANS: Liver: Slightly dilated intrahepatic ducts with dilatation of the CBD. The CBD measures 1.1 cm. Gallbladder: Status post cholecystectomy. Spleen: Normal. Stomach/duodenum: Slightly thickened wall. Pancreas: Normal. Adrenals: Normal. Kidneys: Tiny cyst in the right kidney upper pole. Tiny stones in the left kidney lower pole.No defin ite ureteric stones although very tiny calcification the left lower artery territories not excluded w ith no dilatation Small cyst in the left kidney midpole. Urinary bladder: Normal. VISUALIZED BOWEL AND MESENTERY: No evidence of diverticulitis. No evidence of appendicitis The bowel is otherwise normal. No free air or free fluid. No mesenteric lymphadenopathy. RETROPERITONEUM: Mild atheromatous disease of the abdominal aorta. No retroperitoneal lymphadenopathy . MUSCULOSKELETAL: Fat and fluid containing umbilical hernia.,The superficial soft tissues are normal. Age appropriate degenerative changes of the spine. Bilateral sacroiliitis. IMPRESSION: No evidence of appendicitis, diverticulitis or intestinal obstruction. Tiny stones in the left kidney lower pole. No definite ureteric stones although very tiny calcificati on the left lower artery territories not excluded with no dilatation Dilated CBD and intrahepatic biliary ducts. No stones or masses seen in the area of the head of the p ancreas. Small flat and fluid containing umbilical hernia. Reviewed, dictated and finalized at location A. IMPRESSION: No evidence of appendicitis, diverticulitis or intestinal obstruction. Tiny stones in the left kidney lower pole. No definite ureteric stones although very tiny calcification the left lower artery territories not excluded with no dilatation Dilated CBD and intrahepatic biliary ducts. No stones or masses seen in the are a of the head of the pancreas. Small flat and fluid containing umbilical hernia.
[2023-11-19 15:33] VITALS: BP 174/97; PULSE 91; RESP 18; TEMP 36.9
--- NOTE | 2023-11-19 15:37 | ED.ABDPAIN ---
HPI - Abdominal Pain General Chief Complaint: Abdominal Pain <GUNJAN Bridges Last Filed: 11/19/23 15:44> Stated Complaint: abd pain <GUNJAN Bridges Last Filed: 11/19/23 15:44> Time Seen by Provider: 11/19/23 15:37 <GUNJAN Bridges Last Filed: 11/19/23 15:44> Focused HPI: Patient is an 82 y/o female who presents to [facility] ED with c/o abdominal pain. Patient reports having nausea in the mornings for the past 1 week. This morning, she developed pain throughout her upper abdomen and across her mid abdomen since this morning. Pain is constant. Took pepto bismol and camron seltzer w/o relief. Patient reports she feels constipated, states last nml BM was 2 days ago. Had a small BM this morning but states she had to strain and it was hard. Denies fevers, rectal bleeding, melena, urinary compaints. GENERAL: Elderly, morbidly obese with BMI of 40.2, and in no acute distress. HEAD: Normocephalic, atraumatic. CHEST: Clear to auscultation. ?No respiratory distress. HEART: Regular rate and rhythm.? ABD: TTP throughout epigastric region, R lower abdomen, periumbilical region. No rebound. Normoactive BS. NEURO: ?Alert and oriented x3. Patient screened in triage and initial orders placed.? ?Additional care and disposition to be based upon?diagnostic testing and treatment. <GUNJAN Bridges Last Filed: 11/19/23 15:44> Focused HPI: Patient is an 82 y/o female who presents to the ED with c/o abdominal pain. Patient reports having nausea in the mornings for the past 1 week. This morning, she developed pain across her lower abdomen since this morning. Took pepto bismol and camron seltzer w/o relief. Patient reports she feels constipated, states last nml BM was 2 days ago. Had a small BM this morning but states she had to strain and it was hard. Denies fevers, rectal bleeding, melena, urinary compaints. Patient states that the pain has not subsided while waiting in the emergency department. GENERAL: Elderly, morbidly obese with BMI of 40.2, and in no acute distress. HEAD: Normocephalic, atraumatic. CHEST: Clear to auscultation. ?No respiratory distress. HEART: Regular rate and rhythm.? ABD: TTP throughout epigastric region, R lower abdomen, periumbilical region. No rebound. Normoactive BS. NEURO: ?Alert and oriented x3. Patient screened in triage and initial orders placed.? ?Additional care and disposition to be based upon?diagnostic testing and treatment. Will: Agree with DANG. <Kadeem Solis MD - Last Filed: 11/19/23 20:12> Source: patient <Marah Hernandez PA-C - Last Filed: 11/19/23 15:44> Mode of arrival: ambulatory <Marah Hernandez PA-C - Last Filed: 11/19/23 15:44> Limitations: no limitations <GUNJAN Bridges Last Filed: 11/19/23 15:44> Related Data Home Medications: Home Medications Medication Instructions Recorded Confirmed aripiprazole 15 mg tablet (Abilify) 15 mg PO QAM 05/02/19 09/02/23 bupropion HCl 300 mg 24 hr tablet, 300 mg PO QAM 05/02/19 09/02/23 extended release aspirin 81 mg tablet,delayed 81 mg PO DAILY 08/06/23 09/02/23 release (Adult Aspirin Regimen) cholecalciferol (vitamin D3) 50 50 mcg PO DAILY 09/02/23 09/02/23 mcg (2,000 unit) capsule cod liver oil 1 cap PO DAILY 09/02/23 09/02/23 multivitamin 1 tablet PO DAILY 09/02/23 09/02/23 psyllium husk 0.4 gram capsule 1.2 g PO TID 09/02/23 09/02/23 (Metamucil) vitamin B complex 1 tablet PO DAILY 09/02/23 09/02/23 vortioxetine 10 mg tablet 10 mg PO QAM 09/02/23 09/02/23 (Trintellix) <GUNJAN Bridges Last Filed: 11/19/23 15:44> Allergies/Adverse Reactions: Allergies Allergy/AdvReac Type Severity Reaction Status Date / Time Androgenic Anabolic Steroid Allergy Mild MANIC Verified 09/02/23 13:06 SYMPTOMS guaifenesin Allergy Unknown FACIAL Verified 09/02/23 13:06 SWELLING tramadol AdvReac Severe URINARY Verifie
--- NOTE | 2023-11-19 15:40 | ECG_ITS ---
Test Date: 2023-11-19 16:41:35 Measurements Intervals [place] Rate: 83 P: 67 [place]: 150 QRS: 7 QRSD: 90 T: 41 QT: 357 QTc: 422 Interpretive Statements SINUS RHYTHM WITH OCCASIONAL VENTRICULAR PREMATURE COMPLEXES No previous ECG available for comparison Electronically Signed On 11-21-2023 15:41:09 CDT by Edmond Ba M.D.
[2023-11-19 17:34] LABS: Basophils Percent Auto 0.5 % (0.2-1.2); Eosinophils Absolute Auto 0.1 K/mm3 (0-0.3); Eosinophils Percent Auto 1.2 % (0-4.4); Hematocrit 49.7 % (37.0-47.0); Hemoglobin 16.5 g/dL (12.0-15.0); Immature Granulocyte Absolute 0.01 K/mm3 (0.00-0.031); Immature Granulocyte Percent A 0.2 % (0-0.5); Lymphocytes Percent Auto 19.2 % (18.3-44.2); Mean Corpuscular HGB Conc 33.2 g/dl (32-36); Mean Corpuscular Volume 93.4 fl (80-100); Mean Platelet Volume 10.3 fl (7.4-10.4); Monocytes Absolute Auto 0.6 K/mm3 (0.1-0.6); Monocytes Percent Auto 9.6 % (2.6-8.5); Neutrophils Percent Auto 69.3 % (45.5-73.1); Platelet Count Result 243 k/mm3 (150-375); Red Blood Count 5.32 M/mm3 (4.2-5.4); Red Cell Distribution Width 13.6 % (11.5-14.5); White Blood Count 5.7 K/mm3 (4.5-10.0)
[2023-11-19 17:43] LABS: Alanine Aminotransferase 37 U/L (6-35); Albumin Level 4.6 g/dL (3.5-5.1); Alkaline Phosphatase 93 U/L (38-126); Anion Gap 6 mmol/L (4-12); Aspartate Amino Transferase 48 U/L (14-36); Bilirubin,Total 0.8 mg/dL (0.2-1.3); Blood Urea Nitrogen 23 mg/dL (7-17); Calcium 9.7 mg/dL (8.4-10.2); Carbon Dioxide 28 mmol/L (22-30); Chloride 105 mmol/L (98-107); Estimated CRCL calculation 48 ml/min; Estimated Glomerular Filt Rate 60; Glucose 87 mg/dL (65-110); Lipase 198 U/L (23-300); Potassium 4.3 mmol/L (3.4-5.0); Sodium 139 mmol/L (137-145)
[2023-11-19 17:55] LABS: Troponin I < 0.012 ng/mL (0.000-0.034)
[2023-11-19 19:29] LABS: Appearance Urine Clear (Clear); Bilirubin Urine Negative (Negative); Blood Urine Negative (Negative); Color Urine Yellow (Yellow); Glucose Urine UA Negative (Negative); Ketones Urine Trace mg/dL (Negative); Leukocyte Esterase Ur Negative LEU/UL (Negative); Nitrate Urine Negative (Negative); Protein Urine Negative (Negative); Specific Grav Ur 1.023 (1.001-1.035); Urobilinogen Urine 0.2 mg/dL (<2.0)
[2023-11-19 19:31] LABS: Add Urine Microscopic? NO
[2023-11-19 19:45] VITALS: BP 172/102; PULSE 99; RESP 15; O2SAT 95
[2023-11-19 20:24] VITALS: BP 145/82; PULSE 67; RESP 15; O2SAT 99
== END 2023-11-19 20:25 | disposition home or self-care (01) ==
PROVIDERS: Physician Assistant; Emergency Provider Emergency Medicine; PCP Family Medicine
DX: R10.10 Upper abdominal pain, unspecified (principal); E66.01 Morbid (severe) obesity due to excess calories; Z68.41 Body mass index [BMI] 40.0-44.9, adult; M79.7 Fibromyalgia; K58.0 Irritable bowel syndrome with diarrhea; Z98.1 Arthrodesis status; Z86.010 Personal history of colon polyps; Z85.3 Personal history of malignant neoplasm of breast; Z85.42 Personal history of malignant neoplasm of other parts of uterus; Z86.73 Personal history of transient ischemic attack (TIA), and cerebral infarction without residual deficits; Z87.891 Personal history of nicotine dependence; Z90.49 Acquired absence of other specified parts of digestive tract; Z90.710 Acquired absence of both cervix and uterus; I49.3 Ventricular premature depolarization
CPT/HCPCS: 36415; 74177; 80053; 81001; 81003; 83690; 84484; 85025; 93005; 99284; Q9967

== ENCOUNTER 2024-04-19 14:14 | Outpatient (CLI) | payer MEDICARE, SELFPAY ==
--- NOTE | ~2024-04-19 | MM_ITS ---
EXAMINATION: MM screening reed LT w leia HISTORY: Screening mammogram TECHNIQUE: Craniocaudal and mediolateral oblique 3-D tomosynthesis images were obtained and synthetic 2-D images were generated. CAD analysis was submitted and interpreted. COMPARISON: 03/27/2023, 03/25/2022, 12/31/2020 BREAST PARENCHYMAL COMPOSITION:Not Dense. There are scattered areas of fibroglandular density. FINDINGS: No suspicious mass, calcification, or architectural distortion are identified in either louis ast to suggest malignancy. There has been no suspicious interval change. IMPRESSION: No mammographic evidence of malignancy. Recommend routine screening mammography in one year. BI-RADS Category 1: Negative Reviewed, dictated and finalized at location . YER HELPER
== END 2024-04-19 14:15 | disposition home or self-care (01) ==
LOC: MICIMG 14:16
PROVIDERS: PCP Family Medicine; Visit Provider Family Medicine
DX: Z12.31 Encounter for screening mammogram for malignant neoplasm of breast (principal)
CPT/HCPCS: 77063; 77067

== ENCOUNTER 2024-04-19 15:04 | Outpatient (CLI) | payer MEDICARE, SELFPAY ==
--- NOTE | ~2024-04-19 | XR_ITS ---
XR abdomen/kub 1V Ordering provider: Sang Carrillo MD History: . 6 month follow up to lithotripsy no pain today . Comparison: None. FINDINGS: BOWEL: Nonobstructive bowel gas pattern. ORGANOMEGALY: None. SIGNIFICANT PATHOLOGIC CALCIFICATIONS: Tiny calcific shadows projected over the right sacral alar whi ch may be a stone or vascular. Clinical correlation and if oriented CT is advised. OTHER: No free air is seen under the diaphragm. Degenerative changes of the spine. Bilateral hip osteoarthritic changes. Pubic symphysitis. IMPRESSION: NO ACUTE ABDOMINAL FINDINGS. Possible stone projected over the right sacral alar. Reviewed, dictated and finalized at location A. KLE CHASER
== END 2024-04-19 15:05 | disposition home or self-care (01) ==
PROVIDERS: PCP Urology; Visit Provider Urology
DX: N20.0 Calculus of kidney (principal)
CPT/HCPCS: 74018

== ENCOUNTER 2024-05-01 19:28 | Emergency (ER) | payer MEDICARE, SELFPAY ==
--- NOTE | ~2024-05-01 | CT_ITS ---
EXAMINATION: CT brain wo con DATE: 05/01/2024 21:54 INDICATION: Dizziness. Facial numbness and tingling. TECHNIQUE: Computed tomography (CT) of the head was performed without intravenous contrast. The mA wa s adjusted according to patient size. Iterative reconstruction technique was employed. Exam dose: 68 1.00 mGy-cm total exam DLP. COMPARISON: None FINDINGS: Bilateral vertebral artery and carotid siphon internal carotid artery calcifications. There is nonspecific diminished attenuation the cerebral white matter, likely due to chronic small ve ssel ischemic changes. There is central and cortical cerebral and cerebellar atrophy, the cerebral atrophy most prominent in the frontal lobes. Approximately 9 x 11 mm extra-axial mass consistent with meningioma at the right parasagittal anterio r falx. No other intracranial mass lesion or hemorrhage, midline shift or mass effect is detected. No subdural or epidural hematoma. There is a fluid level in left sphenoid sinus. Minimal mucoperiosteal thickening of the left maxillar y sinus and right sphenoid sinus. The paranasal sinuses are otherwise unremarkable. The mastoid air c ells are well-developed and aerated. No fracture or bone destruction of the cranial vault. IMPRESSION: Cerebral atherosclerosis and chronic small vessel ischemic changes of the cerebral white matter Central and cortical cerebral and cerebellar atrophy Anterior right falx 9 x 11 mm meningioma Mild paranasal sinus disease Reviewed, dictated and finalized at [facility]. Reviewed, dictated and finalized at location A. R
[2024-05-01 19:28] VITALS: TEMP 36.4
[2024-05-01 19:30] VITALS: BP 145/72; PULSE 77; TEMP 36.9; O2SAT 96
[2024-05-01 19:39] LABS: Glucose Point of Care 113 mg/dl (65-105)
--- NOTE | 2024-05-01 22:07 | ED.NEUROSD ---
HPI - Neuro Symptoms/Deficit General Chief Complaint: Neuro Symptoms/Deficit Stated Complaint: FACIAL & BLE NUMBNESS, ARRYTHMIA Time Seen by Provider: 05/01/24 20:25 History of Present Illness HPI Narrative: Patient is an 83-year-old female who presents to the ER complaints of tingling and numbness in her feet up to my knees , left hand, face, and my mouth feels funny. She reports her symptoms started about 530 this evening. Patient endorses history hypertension, bipolar disorder, fibromyalgia, cancer. She denies any urinary symptoms. Patient reports she has never experienced this before. She denies any precipitating factors. Patient denies chest pain, shortness of breath, fevers. Related Data Home Medications Medication Instructions Recorded Confirmed aripiprazole 15 mg tablet (Abilify) 15 mg PO QAM 05/02/19 02/02/24 bupropion HCl 300 mg 24 hr tablet, 300 mg PO QAM 05/02/19 02/02/24 extended release aspirin 81 mg tablet,delayed 81 mg PO DAILY 08/06/23 02/02/24 release (Adult Aspirin Regimen) cholecalciferol (vitamin D3) 50 50 mcg PO DAILY 09/02/23 02/02/24 mcg (2,000 unit) capsule cod liver oil 1 cap PO DAILY 09/02/23 02/02/24 multivitamin 1 tablet PO DAILY 09/02/23 02/02/24 vitamin B complex 1 tablet PO DAILY 09/02/23 02/02/24 vortioxetine 10 mg tablet 10 mg PO QAM 09/02/23 02/02/24 (Trintellix) lifitegrast 5 % eye drops in a 1 drp EACH EYE BID 02/02/24 02/02/24 dropperette (Xiidra) Allergies Allergy/AdvReac Type Severity Reaction Status Date / Time Androgenic Anabolic Steroid Allergy Mild MANIC Verified 02/02/24 09:59 SYMPTOMS guaifenesin Allergy Unknown FACIAL Verified 02/02/24 09:59 SWELLING tramadol AdvReac Severe URINARY Verified 02/02/24 09:59 FREQ NSAIDS (Non-Steroidal AdvReac Mild Other Verified 02/02/24 09:59 Anti-Inflamma oxycodone AdvReac Mild Nausea Verified 02/02/24 09:59 codeine AdvReac Unknown Gastrointestinal Verified 02/02/24 09:59 Upset Review of Systems Review of Systems: All systems reviewed & are unremarkable except as noted in HPI and below PMFSH Past Medical History Medical History Actinic keratosis Acute depression Adenomatous colon polyp Arthritis At risk for fall due to comorbid condition BMI 39.0-39.9,adult BMI 40.0-44.9, adult Breast cancer Chronic idiopathic constipation Collagenous colitis Fibromyalgia Fibromyalgia Foot pain, bilateral History of endometrial cancer History of stroke History of vaginal delivery x 3 Hypertension Iliotibial band syndrome, right leg Infiltrating lobular carcinoma of breast, stage 2 Irritable bowel syndrome with diarrhea Irritable bowel syndrome without diarrhea Left shoulder pain Myositis Nasal drainage Obese Precancerous skin lesion Stress due to illness of family member Vaginal Pap smear with ASC-US Surgical History Surgical History History of back surgery X3 History of cholecystectomy History of fusion of cervical spine History of hysterectomy History of knee surgery Left History of shoulder surgery Left History of tubal ligation Hx of total knee replacement Family History Family History Father Hypertension Cerebrovascular accident, Onset Age: 86 Patient's father is Family history of heart disease in male family member before age 55 Family history of cardiovascular disease Sibling Family history of malignant neoplasm of cervix Patient's sister is Grandparent Cerebrovascular accident Mother Family history of heart disease in male family member before age 55 Family history of cardiovascular disease Sibling No problems noted. Other Family history of kidney stones Social History Social History Years smoked: 1 Smoking status: Never smoker Tobacco type: cigarettes Second hand tobacco smoke exposure: Yes Additional smoking assessment comments: Pt only smoke 1 cigarette a day when she was in college. 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 HEAD: Normocephalic, atraumatic. NECK: Supple. No adenopathy, no masses. RESPIRATORY: Airway patent, respirations nonlabored. Clear to auscultation bilaterally, no rales, rhonchi, wheezing. CARDIOVASCULAR: Regular rate and rhythm without murmurs, rubs, or gallops. Peripheral pulses 2+ and equal bilaterally. ABDOMINAL: Soft, nontender, nondistended, no hepatosplenomegaly. Normoactive BS. MUSCULOSKELETAL: Moves all extremities. Strength/ROM intact without gross deformities. SKIN: Warm, dry, normal color. No rashes. NEURO: A&O X3. Speech clear. Cranial nerves II-XII grossly intact. No ataxic movements. PSYCHIATRIC: Appropriate mood and affect. Normal interaction. Course Vital Signs Vital signs: Vital Signs Temperature 36.4 C 05/01/24 19:28 Temperature 36.8 C 05/02/24 00:00 Pulse Rate 77 05/02/24 00:00 Respiratory Rate 20 05/02/24 00:00 Blood Pressure 175/78 H 05/02/24 00:00 Pulse Oximetry 95 05/02/24 00:00 Oxygen Delivery Room Air 05/01/24 19:30 MDM - Neuro Symptoms/Deficit MDM Narrative Medical decision making narrative: Patient is an 83-year-old female who presents to the ER complaints of tingling and numbness in her feet up to my knees , left hand, face, and my mouth feels funny. She reports her symptoms started about 530 this evening. Patient endorses history hypertension, bipolar disorder, fibromyalgia, cancer. She denies any urinary symptoms. Patient reports she has never experienced this before. She denies any precipitating factors. Patient denies chest pain, shortness of breath, fevers. Labs Ordered: CBC, CMP, glucose, urinalysis Imaging Ordered: CT brain Results: Ct brain scan indicates Cerebral atherosclerosis and chronic small vessel ischemic changes of the cerebral white matter Central and cortical cerebral and cerebellar atrophy Anterior right falx 9 x 11 mm meningioma. Mild paranasal sinus disease Diagnosis: anxiety, neuropathy Consults: None needed Patient Education/Shared MDM: Patient's CBC and CMP were unremarkable for any acute abnormalities. Her urinalysis is negative for dehydration or a urinary tract infection. Patient's head CT scan was negative for any acute abnormalities. Results shared with patient. 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 Patient verbalizes that her symptoms may be due to anxiety. She endorses she has a history of neuropathy and vertigo. Patient offered Valium p.o. to see if that helped relieve her symptoms but patient declined. She reports her symptoms of vertigo are not present at this time. Patient does not want to be treated for anxiety at this time because I need to be awake to take care of my . An extensive amount of time was spent educating patient on needs follow-up with her primary care provider and return to the ER with any worsening symptoms. Patient verbalized understanding and is in agreement with my discharge home. No new prescriptions will be placed at this time. Differential Diagnosis Differential diagnosis: Likely subarachnoid hemorrhage, cerebrovascular accident, transient cerebral ischemia and other (anxiety, fibromyalgia) Lab Data Attestation: I reviewed the patient's lab results. 05/01/24 23:11 05/01/24 23:11 Labs: Lab Results 05/01/24 05/01/24 05/01/24 Range/Units 19:37 22:29 23:11 WBC 5.2 (4.5-10.0) K/mm3 RBC 5.08 (4.2-5.4) M/mm3 Hgb 16.2 H (12.0-15.0) g/dL Hct 47.6 H (37.0-47.0) % MCV 93.7 (80-100) fl MCH 31.9 (26-34) pg MCHC 34.0 (32-36) g/dl RDW 13.2 (11.5-14.5) % Plt Count 248 (150-375) k/mm3 MPV 10.2 (7.4-10.4) fl Immature Gran % (Auto) 0.2 (0-0.5) % Neut % (Auto) 64.1 (45.5-73.1) % Lymph % (Auto) 22.7 (18.3-44.2) % [place] % (Auto) 11.2 H (2.6-8.5) % Eos % (Auto) 1.2 (0-4.4) % Baso % (Auto) 0.6 (0.2-1.2) % Lymph # (Auto) 1.18 (0.9-3.2) K/mm3 [place] # (Auto) 0.6 (0.1-0.6) K/mm3 Eos # (Auto) 0.1 (0-0.3) K/mm3 Baso # (Auto) 0.0 (0.0-0.1) K/mm3 Abs Immat Gran (auto) 0.01 (0.00-0.031) K/mm3 Absolute Neuts (auto) 3.3 (1.3-6.7) K/mm3 Absolute Nucleated RBC 0.000 (0.0-0.012) K/mm3 Nucleated RBC % 0.0 (0.0-0.2) % Sodium 141 (137-145) mmol/L Potassium 3.6 (3.4-5.0) mmol/L Chloride 107 (98-107) mmol/L Carbon Dioxide 29 (22-30) mmol/L Anion Gap 5 (4-12) mmol/L BUN 17 (7-17) mg/dL Creatinine 0.80 (0.7-1.0) mg/dL Estim Creat Clear Calc 55 ml/min Estimated GFR > 60 (59 - ) Glucose 104 (65-110) mg/dL POC Capillary Glucose 113 H (65-105) mg/dl Calcium 9.8 (8.4-10.2) mg/dL Total Bilirubin 0.7 (0.2-1.3) mg/dL AST 38 H (14-36) U/L ALT 31 (6-35) U/L Alkaline Phosphatase 80 (38-126) U/L Total Protein 7.0 (6.3-8.2) g/dL Albumin 4.1 (3.5-5.1) g/dL Urine Color Yellow (Yellow) Urine Appearance Clear (Clear) Urine pH 7.5 (5.0-9.0) Ur Specific Dennis 1.007 (1.001-1.035) Urine Protein Negative (Negative) mg/dL Urine Glucose (UA) Negative (Negative) mg/dL Urine Ketones Negative (Negative) mg/dL Ur Blood (Man) Negative (Negative) Urine Nitrate Negative (Negative) Urine Bilirubin Negative (Negative) Urine Urobilinogen 0.2 (<2.0) mg/dL Leukocyte Esterase Rfl Negative (Negative) DANIEL/UL Imaging Data Attestation: I personally reviewed and interpreted this imaging study as follows: Radiologist's impression: Impressions Head CT 05/01/24 21:56 IMPRESSION: Cerebral atherosclerosis and chronic small vessel ischemic changes of the cerebral white matter Central and cortical cerebral and cerebellar atrophy Anterior right falx 9 x 11 mm meningioma Mild paranasal sinus disease Discharge Plan Discharge Clinical Impression: Neuropathy, Anxiety Patient Disposition: Home, Self-Care Condition: Stable Instructions: Antibiotic Form, Peripheral Neuropathy (ED), Anxiety (ED) Additional Instructions: Please follow-up with your primary care provider as soon as possible. If your symptoms worsen please return to the ER. Please continue to take your medications as prescribed. Prescriptions: No Action aripiprazole [Abilify] 15 mg tablet 15 mg PO QAM bupropion HCl 300 mg tablet extended release 24 hr 300 mg PO QAM aspirin [Adult Aspirin Regimen] 81 mg tablet,delayed release (DR/EC) 81 mg PO DAILY Hold Instructions: Resume on 09/13/23. Xiidra 5 % dropperette 1 drp EACH EYE BID Rx Instructions: administer approximately 12 hours apart pregabalin 150 mg capsule 150 mg PO BID Qty: 180 1RF Trintellix 10 mg tablet 10 mg PO QAM multivitamin Tablet 1 tablet PO DAILY cod liver oil Capsule 1 cap PO DAILY vitamin B complex Tablet 1 tablet PO DAILY cholecalciferol (vitamin D3) 50 mcg (2,000 unit) Capsule 50 mcg PO DAILY hydrocodone-acetaminophen 5-325 mg tablet 1 - 2 tablet PO Q6H PRN (Reason: pain) Qty: 20 0RF temazepam 30 mg capsule 30 mg PO .HS Qty: 30 0RF lisinopril 5 mg tablet 5 mg PO BID Qty: 180 4RF ipratropium bromide 21 mcg (0.03 %) spray,non-aerosol 2 spray intranasal BID Qty: 30 5RF Rx Instructions: administer into each nostril amlodipine 10 mg tablet See Rx Instructions .ROUTE .COMPLEX Qty: 90 0RF Dose Instruction: TAKE 1 TABLET BY MOUTH EVERY DAY Rx Instructions: TAKE 1 TABLET BY MOUTH EVERY DAY levothyroxine 75 mcg tablet 75 mcg PO QAM Qty: 90 0RF Follow-up/Referrals: Enio Hernandez MD [Primary Care Provider] - Time of Disposition: 01:32
[2024-05-01 22:38] LABS: Add Urine Microscopic? NO; Appearance Urine Clear (Clear); Bilirubin Urine Negative (Negative); Blood Urine Negative (Negative); Color Urine Yellow (Yellow); Glucose Urine UA Negative (Negative); Ketones Urine Negative (Negative); Leukocyte Esterase Ur Negative LEU/UL (Negative); Nitrate Urine Negative (Negative); Protein Urine Negative (Negative); Specific Grav Ur 1.007 (1.001-1.035); Urobilinogen Urine 0.2 mg/dL (<2.0); pH Urine 7.5 (5.0-9.0)
[2024-05-01 22:41] VITALS: O2SAT 98
[2024-05-01 23:27] LABS: Basophils Percent Auto 0.6 % (0.2-1.2); Eosinophils Absolute Auto 0.1 K/mm3 (0-0.3); Eosinophils Percent Auto 1.2 % (0-4.4); Hematocrit 47.6 % (37.0-47.0); Hemoglobin 16.2 g/dL (12.0-15.0); Immature Granulocyte Absolute 0.01 K/mm3 (0.00-0.031); Immature Granulocyte Percent A 0.2 % (0-0.5); Lymphocytes Absolute Auto 1.18 K/mm3 (0.9-3.2); Lymphocytes Percent Auto 22.7 % (18.3-44.2); Mean Corpuscular Hemoglobin 31.9 pg (26-34); Mean Corpuscular Volume 93.7 fl (80-100); Mean Platelet Volume 10.2 fl (7.4-10.4); Monocytes Absolute Auto 0.6 K/mm3 (0.1-0.6); Monocytes Percent Auto 11.2 % (2.6-8.5); Neutrophils Absolute Auto 3.3 K/mm3 (1.3-6.7); Neutrophils Percent Auto 64.1 % (45.5-73.1); Platelet Count Result 248 k/mm3 (150-375); Red Blood Count 5.08 M/mm3 (4.2-5.4); Red Cell Distribution Width 13.2 % (11.5-14.5); White Blood Count 5.2 K/mm3 (4.5-10.0)
[2024-05-01 23:41] LABS: Alanine Aminotransferase 31 U/L (6-35); Albumin Level 4.1 g/dL (3.5-5.1); Alkaline Phosphatase 80 U/L (38-126); Anion Gap 5 mmol/L (4-12); Aspartate Amino Transferase 38 U/L (14-36); Bilirubin,Total 0.7 mg/dL (0.2-1.3); Blood Urea Nitrogen 17 mg/dL (7-17); Calcium 9.8 mg/dL (8.4-10.2); Carbon Dioxide 29 mmol/L (22-30); Chloride 107 mmol/L (98-107); Estimated CRCL calculation 55 ml/min; Estimated Glomerular Filt Rate > 60; Glucose 104 mg/dL (65-110); Potassium 3.6 mmol/L (3.4-5.0); Sodium 141 mmol/L (137-145)
--- NOTE | 2024-05-01 23:57 | PC.NURSE ---
Report received from KEMI Santos. Assumed care of patient at this time.
[2024-05-02] VITALS: BP 175/78; PULSE 77; RESP 20; TEMP 36.8; O2SAT 95
== END 2024-05-02 01:48 | disposition home or self-care (01) ==
PROVIDERS: Emergency Provider Registered Nurse; PCP Family Medicine
DX: G62.9 Polyneuropathy, unspecified (principal); F41.9 Anxiety disorder, unspecified; K59.04 Chronic idiopathic constipation; K58.9 Irritable bowel syndrome, unspecified; M19.90 Unspecified osteoarthritis, unspecified site; M79.7 Fibromyalgia; F32.A Depression, unspecified; Z98.1 Arthrodesis status; Z96.659 Presence of unspecified artificial knee joint; Z85.42 Personal history of malignant neoplasm of other parts of uterus; Z85.3 Personal history of malignant neoplasm of breast; Z86.73 Personal history of transient ischemic attack (TIA), and cerebral infarction without residual deficits; Z86.0101 Personal history of adenomatous and serrated colon polyps; Z87.891 Personal history of nicotine dependence; Z90.710 Acquired absence of both cervix and uterus; Z90.49 Acquired absence of other specified parts of digestive tract; Z79.899 Other long term (current) drug therapy; Z79.82 Long term (current) use of aspirin
CPT/HCPCS: 36415; 70450; 80053; 81003; 82948; 85025; 99284

== ENCOUNTER 2025-04-11 12:54 | Outpatient (CLI) | payer SELFPAY ==
--- OUTSIDE RECORDS SUMMARY | 2010-03-12 08:30 | XMS_ITS | Continuity of Care Document ---
Author Organization [facility] Address [address] [place] [address] Phone Care Team Providers Care Social Organization Professor Name Role Phone Yesenia Guadalupe Unavailable Unavailable Procedures Procedure Date Office/outpatient Visit, Est Office/outpatient Visit, Est Corneal Pachymetry Fundus Photography W/ Report Visual Field Examination(s) Eye Exam & Treatment Refraction Office/outpatient Visit, Est Office/outpatient Visit, Est Office/outpatient Visit, Est Office/outpatient Visit, Est Eye Exam Established Pt Close Tear Duct Opening Eye Exam & Treatment Refraction Office/outpatient Visit, Est Office/outpatient Visit, Est Office/outpatient Visit, Est Office/outpatient Visit, Est Advance Directives Directive Yes / No Effective Date File Name No Information Encounters Encounter Description Practice Location Reason(s) For Visit Diagnoses Date Provider Providers Copied on Encounter Office/outpat ient Visit, [facility], [address], [place], [place], [id number], [place] tel:[phone] [facility] No Information Oct-0 5-201 0 Anayeli Patterson. [address] , [address], [place], [address], [place]. tel:[phone] Office/outpat ient Visit, [facility], [address], [place], [place], [id number], [place] tel:[phone] [facility] No Information May-0 7-201 0 Krishnasamy Marvin. [address] [facility] [address], [facility], [place]. tel:[phone] Referring Provider: Marvin arvizu, [address] [place], [place] [address]ate [facility] [address], [place], [facility]. tel:[phone] [facility], [address], [place], [place], [id number], [place] tel:[phone] [facility] No Information Nov-0 2-200 9 Krishnasamy Marvin. [address] [place] [address], [facility], [place]. tel:[phone] Referring Provider: Marvin arvizu, [address] [place], [place] [address]ate [place] [address], [place], [facility]. tel:[phone] [facility], [address], [place], [place], [id number], [place] tel:[phone] [facility] No Information Oct-3 0-200 9 Krishnasamy Marvin. [address] [place] [address], [facility], [place]. tel:[phone] Office/outpat ient Visit, [facility], [address] [place] [address] [address], [place], [place], [id number], [place] tel:[phone] [facility] No Information Sep-3 0-200 9 Krishnasamy Marvin. [address] [place], [place] [address]ate [facility] [address], [place], [facility], [place]. tel:[phone] Office/outpat ient Visit, [facility], [address], [place], [place], [id number], [place] tel:[phone] [facility] No Information Sep-0 4-200 9 Krishnasamy Marvin. [address] [place] [address], [facility], [place]. tel:[phone] Office/outpat ient Visit, [facility], [address], [place], [place], [id number], [place] tel:[phone] [facility] No Information Mar-0 5-200 9 Krishnasamy Marvin. [address] [place] [address] [address], [place], [facility], [place]. tel:[phone] Office/outpat ient Visit, [facility], [address] [place] [address] [address], [place], [place], [id number], [place] tel:[phone] [facility] No Information Sep-0 3-200 8 Krishnasamy Marvin. [address] [place] [address] [address], [place], [facility], [place]. tel:[phone] [facility], [address] [place] [address] [address], [place], [place], [address], [place] tel:[phone] [facility] No Information Yoan-0 2-200 8 Krishnasamy Marvin. [address] [place] [address], [facility], [place]. tel:[phone] Referring Provider: Marvin arvizu, [address] [place] [address] [address], [facility]. tel:[phone] [facility], [address] [place] [address] [address], [place], [place], [address], [place] tel:[phone] [facility] No Information Kishore-0 5-200 8 Bajwa OD [place]. [address] [place] [address] [address], [address], [place], [facility], [place]. tel:[phone] Office/outpat ient Visit, [facility], [address], [place], [place], [address], [place] tel:[phone] [facility] No Information 1-200 8 Scott Wong. [address], [facility], [place]. tel:[phone] Office/outpat ient Visit, [facility], [address], [place], [place], [address], [place] tel:[phone] [facility] No Information 3-200 7 Wankum Chuckie. [address], [address], [place], [address], . tel:[phone] Office/outpat ient Visit, [facility], [address], [place], [place], [address], [place] tel:[phone] [facility] No Information 0 9-200 7 Wankum Chuckie. [address], [place], [place], [address], [place]. tel:[phone] Office/outpat ient Visit, [facility], [address], [place], [place], [id number], [place] tel:[phone] [facility] No Information 0 8-200 7 Wankum Chuckie. [address], [address] [place], [place], [address], . tel:[phone] Family History Family Member Type Diagnosis Age At Onset No Information Payers Payer name Insurance type Covered democrat ID Authoriza tion(s) No Information Social History Type Description Quantity Date Captured Comments Sex Female Smoking Status No Information Chief Complaint And Reason For Visit No Information Reason For Referral Reason For Referral No Information History Of Present Illness Encounter Date Complaint History Of Prese nt Illness No Information Functional Status Date Functional Assessmen t No Information Instructions Date Instruction Additional Infor mation No Information Assessments Type Assessment Date No Information Patient Care Teams Name Effective Dates (start - stop) Status Members No Information
--- OUTSIDE RECORDS SUMMARY | 2025-04-11 14:35 | XMS_ITS | Encounter Summary ---
Author Organization [facility] Address [address] [place] [address] Care Team Providers Care New Car Salesperson Name Role Phone Lien Owen MD Primary Care Provider Enio Hernandez MD Primary Care Provider [phone] Rafa Faith MD Unavailable [phone] Lien Owen MD Unavailable [phone] Ameya Serna DO Unavailable [phone] Encounter Details Date Type Department Care Team (Late st Contact Info) Description 07/07/2017 Orders Only [facility] Health Information Management [address] [place] [id number] Scanning, Provider Social History Tobacco Use Types Packs/Day Years Used Date Smoking Tobacco: Former Alcohol Use Standard Drinks/Week Comments No 0 (1 standard drink = 0.6 oz pur e alcohol) Comments Unknown Sex and Gender Information Value Date Recorded Sex Assigned at Not on file 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 Gender Identity Not on file Sexual Orientation Not on file documented as of this encounter Plan of Treatment Not on file documented as of this encounter Procedures Procedure Name Priority Date/Time Associated Diagnosis Comments SCAN - RADIOLOGY/IMAGING 07/07/2017 documented in this encounter Results * SCAN - RADIOLOGY/IMAGING (07/07/2017) Anatomical Region Laterality Modality Other us Provider Scanning Final Result documented in this encounter Visit Diagnoses Not on filedocumented in this encounter Care Teams New Car Salesperson Relationship Specialty Start Date End Date Lien Owen MD [address] [place] [address] PCP - General 10/03/16 09/22/17 Enio Hernandez MD [address] [place] [address] PCP - General Family Medicine 09/23/17 Rafa Faith MD [address] [place] [id number] Consulting Physician Medical Oncology 11/25/17 11/13/20 Lien Owen MD [address] [place] [address] Surgeon Surgical Oncology 11/25/17 Ameya Serna DO [address] [place] [address] [address] [address] Medical Oncologist/[facility] Drier Hematology and Oncology 11/14/20 documented as of this encounter
--- OUTSIDE RECORDS SUMMARY | 2025-04-11 14:35 | XMS_ITS | Clinical Summary ---
Author Organization [facility] [employer] Address [address] [place] [address] Care Team Providers Care Food And Nutrition Services Assistant Name Role Phone Enio Hernandez MD Primary Care Provider [phone] Source Comments [facility],non-owned Affiliates and Associated Physician Practices is amultiple site organization consisting of ambulatory clinics and hospital sitesin [place], [place], [place] and [place]. This disclosure is being madepursuant to the Care Everywhere program and may not contain all information available regarding this patient. Last updated 18.[facility] [employer] Allergies Active Allergy Reactions Criticality Noted Date Comments Acetaminophen Nausea and/or Vomiting,Unknown Low 02/24/2017 Codeine Urticaria,Nausea and/or Vomiting,Unknown Medium 07/31/2012 Corticosteroids Unknown 05/15/2021 Guaifenesin Urticaria Medium 07/31/2012 FACE SWELLING, HIVES FACE SWELLING, HIVES Nsaids Unknown 01/19/2019 Propoxyphene Unknown 02/24/2017 Tramadol Unknown 02/24/2017 Tramadol-Acetaminophen Urticaria Medium 07/31/2012 Medications * Be aware that medications may not be up to date on this document. Alwaysverify current medications with the patient. lisinopril (PRINIVIL;ZESTR IL) 5 MG tablet Take 5 mg by mouth once daily. Active amLODIPine (NORVASC) 10 MG tablet Take 10 mg by mouth once daily. Active pregabalin (LYRICA) 150 MG capsule Take 150 mg by mouth 2 times daily. Active buPROPion XL 24hr (WELLBUTRIN-XL) 300 MG tablet Take 300 mg by mouth every morning. Active temazepam (RESTORIL) 30 MG capsule Take 30 mg by mouth nightly as needed. Active Aspirin (ASPIR-81) 81 MG TBEC Take 81 mg by mouth once daily Active tamoxifen (NOLVADEX) 20 MG tablet Take 20 mg by mouth once daily 1 Active ARIPiprazole (ABILIFY) 15 MG tablet Take 15 mg by mouth once daily 1 Active TRINTELLIX 10 MG tablet Take 10 mg by mouth once daily 1 Active levothyroxine (SYNTHROID) 75 MCG tablet Take 75 mcg by mouth daily before breakfast 1 Active Active Problems Problem Noted Date Diagnosed Date Knee pain 05/09/2021 Enthesopathy of hip region 05/09/2021 Hypertensive disorder 05/09/2021 Osteoarthrosis 05/09/2021 Peripheral enthesopathy 05/09/2021 Radiotherapy follow-up 05/09/2021 Hypertensive disorder 04/16/2020 Bilateral leg and foot pain 04/16/2020 Knee pain 04/16/2020 Osteoarthrosis 04/16/2020 Pulmonary fibrosis 04/22/2016 Malignant neoplasm of upper-outer quadrant of fe male breast 10/01/2015 Breast disorder 01/19/2013 Proximal humerus fracture 08/04/2012 Immunizations Immunization Administration Dates Next Due INFLUENZA VACCINE 06/08/2017 PNEUMOCOCCAL PPSV23 08/08/2017 TDAP (7yrs+) 01/20/2019,01/20/2019 ZOSTER VACCINE, LIVE 06/08/2015 Zoster Hzv Vacc Recombinant Inj Im 04/23/2019,,01/20/2019 Social History Tobacco Use Types Packs/Day Years Used Date Smoking Tobacco: Former Smokeless Tobacco: Never Alcohol Use Standard Drinks/Week Comments No 0 (1 standard drink = 0.6 oz pur e alcohol) Comments No Sex and Gender Information Value Date Recorded Sex Assigned at Not on file 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 Gender Identity Not on file Sexual Orientation Not on file Last Filed Vital Signs Vital Sign Reading Time Taken Comments Blood Pressure 123/67 11/02/2013 10:07 AM CDT Pulse 83 08/18/2012 8:01 AM CDT Temperature 36.7 C (98 F) 11/02/2013 10:07 AM CDT Respiratory Rate 18 08/18/2012 8:01 AM CDT Oxygen Saturation 94% 08/18/2012 12:06 PM CDT Inhaled Oxygen Concentration 21% 08/18/2012 1 2:16 AM CDT Weight 101.6 kg (224 lb) 11/02/2013 10:07 AM CDT Height 158.8 cm (5' 2.5) 11/02/2013 10:07 AM CD T Body Mass Index 40.32 11/02/2013 10:07 AM CDT Plan of Treatment Health Maintenance Due Date Last Done Comments BONE DENSITY TESTING 1940 Respiratory Syncytial Virus (RSV) Vaccine Pt: or over 60 yrs (1 - 1-dose 75+ series) 2017 PNEUMOCOCCAL VACCINE 50+ (2 of 2 - PCV) 08/08/2018 08/08/2017 DEPRESSION SCREENING 06/08/2024 COVID-19 VACCINE (3 - season) 2025 07/26/2020, 07/05/2020 INFLUENZA VACCINE (#1) 2025 06/08/2017 DTAP/TDAP/TD VACCINES (3 - Td or Tdap) 01/20/2029 01/20/2019, 01/20/2019 ZOSTER VACCINE Completed 04/23/2019, 01/06, 01/20/2019, Additional history exists HEPATITIS B VACCINE Aged Out No longe r eligible based on patient's age to complete this topic HIB VACCINE Aged Out No longer eligi ble based on patient's age to complete this topic HPV VACCINE Aged Out No longer eligi ble based on patient's age to complete this topic MENINGOCOCCAL (Group B) VACCINE SHARED DECISION-MAKING Aged Out No longer eligible based on patient's age to complete this topic MENINGOCOCCAL GROUPS A/C/Y/W VACCINE Aged Out No longer eligible based on patient's age to complete this topic Medical Devices Implanted Type Area Flanging Machine Operator Device Identifier Shelf Expiration Date Model / Serial / Lot Cementies Metaglene Implanted:Qty: 1 on 08/16/2012 by Nando Murray MD at [facility] Left: Shoulder [employer] 06/06/2017 [id number] / N/A / [id number] Sys Shld Tot Arthroplst Rev Implanted:Qty: 1 on 08/16/2012 at [facility] [employer] S4 DEPUY / / Screw Large 42 Mm Implanted:Qty: 1 on 08/16/2012 by Nando Murray MD at [facility] Left: Shoulder [employer] 05/07/2017 [id number] / N/A / [id number] Standard Glenosphere Naomi Implanted:Qty: 1 on 08/16/2012 by Nando Murray MD at [facility] Shoulder [employer] 05/07/2017 [id number] / N/A / [id number] Locking Metaglene Screw Naomi 4.5, Lg 30mm Implanted:Qty: 1 on 08/16/2012 by Nando Murray MD at [facility] Left: Shoulder [employer] 06/06/2017 [id number] / N/A / [id number] Locking Metaglene Screw Naomi. 4.5, Lg 24mm Implanted:Qty: 1 on 08/16/2012 by Nando Murray MD at [facility] Left: Shoulder [employer] 06/06/2017 [id number] / N/A / [id number] Locking Metaglene Screw Naomi 4.5, Lg 30mm Implanted:Qty: 1 on 08/16/2012 by Nando Murray MD at [facility] Left: Shoulder [employer] [id number] / N/A / [id number] Implant Humeral Cemented Epiphysis 2 Dia10 Implanted:Qty: 1 on 08/16/2012 by Nando Murray MD at [facility] Left: Shoulder [employer] 06/06/2017 [id number] / N/A / [id number] Gentamicin Bone Cement Implanted:Qty: 2 on 08/16/2012 by Nando Murray MD at [facility] Left: Shoulder [employer] 06/06/2017 [id number] / N/A / [id number] Standard Humeral Pe Cup Dia42/+9 Implanted:Qty: 1 on 08/16/2012 by Nando Murray MD at [facility] Left: Shoulder [employer] 06/06/2017 [id number] / N/A / [id number] Insurance HU[employer] Advance Directives * FULL RESUSCITATION (Latest Code Status on File) Date Activated Date Inactivated Comments 08/16/2012 11:54 AM 08/18/2012 2:17 PM Care Teams Food And Nutrition Services Assistant Relationship Specialty Start Date End Date Enio Hernandez MD [address] [place] [id number] PCP - General 08/13/12"
--- OUTSIDE RECORDS SUMMARY | 2025-04-11 14:35 | XMS_ITS | Clinical Summary ---
Author Organization [facility] Address [address] [facility] [address] [place] [address] Phone Care Team Providers Care Battalion Chief Name Role Phone Enio Hernandez MD Primary Care Provider [phone] Allergies Active Allergy Reactions Criticality Noted Date Comments Acetaminophen Unknown 02/24/2017 Codeine Nausea 02/24/2017 Oxycodone Unknown 02/24/2017 Propoxyphene Unknown 02/24/2017 Tramadol Unknown 02/24/2017 Medications buPROPion (WELLBUTRIN XL) 300 MG TABLET SR 24 HR XL tablet Take 300 mg by mouth every morning. Active cycloSPORINE (RESTASIS) 0.05 % Emulsion Place 1 Drop in affected eye(s) 2 times daily. Active temazepam (RESTORIL) 30 MG Capsule Take 30 mg by mouth nightly as needed for Sleep. Active tamoxifen citrate 20 MG Tablet Take 20 mg by mouth daily. Active pregabalin (LYRICA) 150 MG Capsule Take 150 mg by mouth daily. Active albuterol (PROVENTIL HFA, VENTOLIN HFA) 108 (90 Base) MCG/ACT Aerosol Solution take 2 Puffs by inhalation every 4 hours as needed for Wheezing. Active Polyethylene Glycol 3350 (MIRALAX PO) Take 17 g by mouth daily. Active Cholecalciferol (VITAMIN D-3 SUPER STRENGTH) 2000 UNIT Tablet Take 2,000 Units by mouth daily. Active Probiotic Product (PROBIOTIC DAILY PO) Take by mouth. Activ e [place]-3 Fatty Acids (OMEGA 3 PO) Take by mouth. Activ e Melatonin 5 MG Capsule Take by mouth. Activ e ARIPiprazole (ABILIFY) 15 MG Tablet Take 15 mg by mouth daily. Active amLODIPine (NORVASC) 10 MG Tablet Take 10 mg by mouth daily. Active Vortioxetine HBr (TRINTELLIX) 10 MG Tablet Take by mouth. Activ e lisinopril (PRINIVIL, ZESTRIL) 5 MG Tablet Take 5 mg by mouth daily. Active thyroid (BOARD CERTIFIED ARTS THERAPIST THYROID) 30 MG Tablet Take 30 mg by mouth daily. Active OLANZapine (ZYPREXA) 7.5 MG Tablet Take 7.5 mg by mouth nightly. Active Multiple Vitamins-Minera ls (MULTIVITAMIN PO) Take by mouth. Activ e Coenzyme Q10 (CO Q 10 PO) Take by mouth. Ac tive ascorbic acid (ASCORBIC ACID) 500 MG Tablet Take 500 mg by mouth daily. Active vitamin b-12 (CYANOCOBALAMIN ) 100 MCG Tablet Take 100 mcg by mouth daily. Active Alpha-Lipoic Acid 600 MG Capsule Take by mouth. Activ e Neomycin-Polymy jose miguel-Dexameth (MAXITROL) 0.1 % Ointment Place in affected eye(s). Active propranolol (INDERAL) 20 MG Tablet Take 20 mg by mouth 3 times daily. Active TiZANidine HCl 4 MG Capsule Take 4 mg by mouth 3 times daily. Active risperiDONE (RISPERDAL) 1 MG Tablet Take 1 mg by mouth 2 times daily. Active Family History Medical History Relation Name Comments Heart Disease Father Hypertension Father Heart Disease Mother Relation Name Status Comments Father Mother Social History Tobacco Use Types Packs/Day Years Used Date Smoking Tobacco: Never Assessed Comments Unknown Sex and Gender Information Value Date Recorded Sex Assigned at Not on file Legal Sex Female 10:51 PM CDT Gender Identity Not on file Sexual Orientation Not on file Plan of Treatment Health Maintenance Due Date Last Done Comments Hepatitis C Virus (HCV) Screening 1940 TdaP Immunization 1940 SARS-COV-2 Immunization (#1) 11/29/1947 Mammogram 1952 Zoster Immunization (1 of 2) 1961 Pneumococcal Immunization (5 0+ years) (1 of 1 - PCV) 1992 Respiratory Syncytial Virus (RSV) Immunization (Adult) (1 - 1-dose 75+ series) 2017 Influenza Immunization (#1) 2025 Hepatitis B Immunization Aged Out No longer eligible based on patient's age to complete this topic Human Papillomavirus (HPV) Immunization Aged Out No longer eligible b ased on patient's age to complete this topic Meningococcal Immunization (ACWY) Aged Out No longer eligible based on patient's age to complete this topic Rotavirus Immunization Aged Out No lo nger eligible based on patient's age to complete this topic Insurance MEDICARE C HUMANA Care Teams Battalion Chief Relationship Specialty Start Date End Date Enio Hernandez MD [address] [address] PCP - General Family Medicine 02/26/17
--- OUTSIDE RECORDS SUMMARY | 2025-04-11 14:36 | XMS_ITS | Clinical Summary ---
Author Organization [facility] Address [address] [place] [address] Care Team Providers Care Keyboard Action Assembler Name Role Phone Enio Hernandez MD Primary Care Provider [phone] Lien Owen MD Unavailable [phone] Ameya Serna DO Unavailable [phone] Allergies Active Allergy Reactions Criticality Noted Date Comments Acetaminophen Nausea only Low 02/24/2017 Codeine Nausea Only 02/24/2017 Guaifenesin Hives Medium 08/13/2012 FACE SWELLING, HIVES Nsaids (Non-Steroidal Anti-Inflammatory Drug) Unknown 01/19/2019 Oxycodone Nausea only Low 02/24/2017 Propoxyphene Unknown 02/24/2017 Tramadol Unknown 02/24/2017 Medications temazepam (RESTORIL) 30 mg capsule take 1 capsule by oral route every day at bedtime as needed 0 0 5 Active ARIPiprazole (ABILIFY) 15 mg tablet take 1 tablet by oral route every day 0 0 5 Active pregabalin (LYRICA) 150 mg capsule take 1 capsule by oral route 2 times every day 0 0 5 Active amLODIPine (NORVASC) 10 mg tablet take 1 tablet by oral route every day 0 0 5 Active cycloSPORINE (RESTASIS) 0.05 % ophthalmic emulsion Administer 1 drop into both eyes 2 (two) times a day. Active levothyroxine (SYNTHROID, LEVOTHROID) 75 mcg tablet Take 75 mcg by mouth director of academic before breakfast 8 Active TRINTELLIX 10 mg tabletIndicatio ns:major depressive disorder 5 mg 0 8 Active azelastine (ASTELIN) 137 mcg (0.1 %) nasal spray USE 2 PUFFS IN EACH NOSTRIL TWICE DAILY 0 9 Active diclofenac sodium (VOLTAREN) 1 % gel APPLY 2 GRAMS FEET TWICE DAILY 6 9 Active lisinopril (PRINIVIL,ZESTR IL) 5 mg tablet Take 10 mg by mouth daily 9 Active propranolol (INDERAL) 20 mg tablet Take 20 mg by mouth every 30 (thirty) days 9 Active Active Problems Problem Noted Date Diagnosed Date Hypertensive disorder 04/16/2020 Knee pain 04/16/2020 Osteoarthritis 04/16/2020 Bilateral leg and foot pain 04/16/2020 Pulmonary fibrosis 04/22/2016 Malignant neoplasm of upper-outer quadrant of fe 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 10/01/2015 Cancer Staging:Clinical stage from 11/27/2017:Stage IIA(cT3, cN0(sn), cM0, G2, ER: Positive, IN: Positive, HER2: Negative) - Signed by Ameya Serna DO on 11/27/2017 Disorder of breast 01/19/2013 Immunizations Immunization Administration Dates Next Due Influenza, Unspecified 06/08/2017 Pfizer SARS-CoV-2 Monovalent Vaccination (12+ Yrs) PURPLE 07/26/2020,07/05/2020 Pneumococcal Polysaccharide PPV23 08/08/2017 Tdap 01/20/2019 ZOSTER LIVE 06/08/2015 ZOSTER Recombinant 04/23/2019,01/20/2019 Surgical History Surgery Date Site/Laterality Comments OTHER SURGICAL HISTORY cervical disc fusion TOTAL ABDOMINAL HYSTERECTOMY Hysterectomy, total MASTECTOMY Mastectomy, right breast OTHER SURGICAL HISTORY total shoulder replacement KNEE ARTHROPLASTY Left Knee replacement OTHER SURGICAL HISTORY 2 back surgeries TONSILLECTOMY TUBAL LIGATION CERVICAL DISC SURGERY CHOLECYSTECTOMY SHOULDER SURGERY SPINE SURGERY REPLACEMENT TOTAL KNEE 06/08/2017 - 06/07/2018 Left Medical History Medical History Date Comments Hypertension Hypertension Hx Other Medical back pain; Comm ents: APO 01/05/2015 - Hx Other Medical cancer; Comment s: APO 01/05/2015 - Osteoporosis Osteoporosis Depression Depression Hx Other Medical poor circulatio n; Comments: APO 01/05/2015 - Hx Other Medical high cholestero l; Comments: APO 01/05/2015 - Hx Other Medical osteoarthritis; Comments: APO 01/05/2015 - Hx Other Medical kidney stones; Comments: APO 01/05/2015 - Hyperlipidemia Obese Sinusitis Breast cancer (HCC) Cataracts, bilateral Depression Sleep apnea H/O bladder infections History of kidney stones Brain tumor (benign) Hypothyroidism Diverticulitis of colon Family History Medical History Relation Name Comments Depression Father Heart disease Father Heart disease Mother Cancer Other 1 Family history of cancer; Heart disease Other 2 Family history of heart problems; Mental illness Other 3 Family histor y of Mental illness; Alcohol abuse Other 4 Family history of Alcoholism; Arthritis Other 5 Family history of arthritis; Other Other 6 Family history of kidney problem; Other Other 7 Family history of seizure; Cancer Sister Depression Sister Relation Name Status Comments Father Mother Other 1 Other 2 Other 3 Other 4 Other 5 Other 6 Other 7 Sister Social History Tobacco Use Types Packs/Day Years Used Date Smoking Tobacco: Former Smokeless Tobacco: Never Tobacco Cessation:Counseling Given: Yes Alcohol Use Standard Drinks/Week Comments No 0 (1 standard drink = 0.6 oz pur e alcohol) Personal Safety Answer Date Recorded Getting School Help Needed Not on file 08/21 Comments Unknown Sex and Gender Information Value Date Recorded Sex Assigned at Not on file Legal Sex Female 12:42 PM SERVICE COORDINATOR ELDERLY FACILITY Gender Identity Not on file Sexual Orientation Not on file Occupation Industry Job Start Date Job End Date retired Not on file Not on file Not on file Last Filed Vital Signs Vital Sign Reading Time Taken Comments Blood Pressure 108/74 04/16/2020 1:55 PM SERVICE COORDINATOR [employer] Pulse 99 04/16/2020 1:55 PM SERVICE COORDINATOR [employer]ACILITY Temperature 36.8 C (98.2 F) 04/16/2020 1:55 PM SERVICE COORDINATOR [employer] Respiratory Rate - - Oxygen Saturation 97% 11/19/2018 1:34 PM CDT Inhaled Oxygen Concentration - - Weight 108.1 kg (238 lb 6.4 oz) 04/16/2020 1:55 PM SERVICE COORDINATOR [employer] Height 157.5 cm (5' 2) 04/16/2020 1:55 PM SERVICE COORDINATOR [employer]AC[employer] Body Mass Index 43.6 04/16/2020 1:55 PM SERVICE COORDINATOR [employer]ACILITY Plan of Treatment Health Maintenance Due Date Last Done Comments Depression Screening 1940 Fall Risk Assessment 1940 Osteoporosis Screening-Bone Density Scan 1940 Hepatitis B Screening 1960 Well Visit 65+ 11/29/2007 Covid-19 Vaccine (3 - 2024-2 6 season) 2025 07/26/2020, 07/05/2020 Influenza Vaccine (#1) 2025 9, 02/26/2018, 06/08/2017, Additional history exists DTaP/Tdap/Td Vaccine (2 - Td or Tdap) 01/20/2029 01/20/2019 Pneumococcal vaccine 65+ Completed 05/17/2018, 08/2017 Zoster Vaccine Completed 04/23/2019, 01/06, 06/08/2015 Insurance HUMANA CLAIMS OFFICE [facility] MEDICARE ADVANTAGE [facility] MEDICARE Address: [address] [address] [place] [address] Care Teams Keyboard Action Assembler Relationship Specialty Start Date End Date Enio Hernandez MD PCP - General Family Medicine 09/23/17 Lien Owen MD [address] [facility] [address] [place] [address] Surgeon Surgical Oncology 11/25/17 Ameya Serna DO [address] [place] [address] MEDICAL ONCOLOGY, [facility] [place], [place] [id number] Medical Oncologist/Information Systems Operator Hematology and Oncology 11/14/20
--- OUTSIDE RECORDS SUMMARY | 2025-04-11 14:36 | XMS_ITS | Patient Health Record ---
Author Organization [facility] Address [address] [place], [place] [id number] Care Team Providers Care Hvac Technician Name Role Phone Enio Hernandez Unavailable Unavailable Reason For Referral No Information Plan Of Treatment Pending Test Test Name Order Date Uric Acid, Serum 01/05/2023 Insurance Providers Payer Name Payer Address Payer Phone Subscriber Number Group Number Insured Name Patient Relationship to Insured Coverage Start Date Coverage End Date [facility] [address] [address] [place] [address] [id number] Oliva Goncalves Self - patient is the insured
== END 2025-04-11 12:55 | disposition home or self-care (01) ==
LOC: ANHAUDIO 12:55
PROVIDERS: PCP Family Medicine
DX: H90.3 Sensorineural hearing loss, bilateral (principal); Z00.01 Encounter for general adult medical examination with abnormal findings; H61.21 Impacted cerumen, right ear; H93.13 Tinnitus, bilateral; Z97.4 Presence of external hearing-aid
CPT/HCPCS: 92557; 92567; 99199

== ENCOUNTER 2025-04-21 13:49 | Outpatient (CLI) | payer MEDICARE, SELFPAY ==
--- NOTE | ~2025-04-21 | XR_ITS ---
EXAMINATION: XR knee RT min 4V, 04/21/2025 13:52 JOINT CUTTER HISTORY: knee pain after fall COMPARISON: No comparisons available. Findings: No acute fracture or malalignment. Arthroplasty intact Soft tissues unremarkable. Impression: No acute fracture or malalignment. Reviewed, dictated and finalized at location P. T CUTTER Impression: No acute fracture or malalignment.
== END 2025-04-21 13:50 | disposition home or self-care (01) ==
LOC: MICIMG 13:51
PROVIDERS: PCP Family Medicine
DX: M25.561 Pain in right knee (principal)
CPT/HCPCS: 73564